=== PATIENT | male | born 1950 | race Caucasian/White ===

== ENCOUNTER 2020-02-08 15:00 | Outpatient (RCR) | payer MEDICARE, SELFPAY ==
[2020-01-25 14:01] VITALS: BP 145/79; PULSE 88; RESP 20; TEMP 36.8; BMI 45.4
--- NOTE | 2020-01-25 14:57 | PCM.WC.HP ---
(1) Diabetes mellitus type 2 in obese Status: Chronic Code(s): E11.69 - Type 2 diabetes mellitus with other specified complication; E66.9 - Obesity, unspecified (2) Morbid obesity with BMI of 45.0-49.9, adult Status: Chronic Code(s): E66.01 - Morbid (severe) obesity due to excess calories; Z68.42 - Body mass index [BMI] 45.0-49.9, adult (3) COPD (chronic obstructive pulmonary disease) Status: Chronic Code(s): J44.9 - Chronic obstructive pulmonary disease, unspecified (4) Coronary artery disease Status: Chronic Qualifiers: Coronary Disease-Associated Artery/Lesion type: [place] artery [place] vs. transplanted heart: [place] heart Associated angina: without angina Qualified Code(s): I25.10 - Atherosclerotic heart disease of [place] coronary artery without angina pectoris Code(s): I25.10 - Atherosclerotic heart disease of [place] coronary artery without angina pectoris (5) Hx of CABG Status: Chronic Code(s): Z95.1 - Presence of aortocoronary bypass graft Comment: Approximately 2009-06 vessels (6) Venous insufficiency Status: Chronic Code(s): I87.2 - Venous insufficiency (chronic) (peripheral) (7) Stasis dermatitis of both legs Status: Chronic Code(s): I87.2 - Venous insufficiency (chronic) (peripheral) (8) Parkinsons disease Status: Chronic Code(s): G20 - Parkinson's disease (9) Hypertension Status: Chronic Code(s): I10 - Essential (primary) hypertension (10) BPH (benign prostatic hyperplasia) Status: Chronic Code(s): N40.0 - Benign prostatic hyperplasia without lower urinary tract symptoms (11) Venous stasis ulcer of calf limited to breakdown of skin Status: Acute Code(s): I83.002 - Varicose veins of unspecified lower extremity with ulcer of calf; L97.201 - Non-pressure chronic ulcer of unspecified calf limited to breakdown of skin History of Present Illness Date of Service: 01/25/20 Chief Complaint: wound on the LLE distally History of Wound: He has had a raised area on the Left lateral and anterior pretibial area on the distal left leg since having his CABG 10 years ago. Recently it has been weeping and it is scaley. He recently had an exacerbation of COPD and has been on Zithromax and steroids. Has had increased swelling of the legs. Denies any hx of DVT or claudication. Had saphenous vein graft in the right lower extremity. His is unable to get compression stockings on. He has no lymphedema pumps. Past Medical History Past Medical History: Chronic Problems Diabetes mellitus type 2 in obese (Chronic) Morbid obesity with BMI of 45.0-49.9, adult (Chronic) COPD (chronic obstructive pulmonary disease) (Chronic) Coronary artery disease (Chronic) Hx of CABG (Chronic) Approximately 2010-5 vessels Venous insufficiency (Chronic) Stasis dermatitis of both legs (Chronic) Parkinsons disease (Chronic) Hypertension (Chronic) BPH (benign prostatic hyperplasia) (Chronic) Surgical History: appendectomy, coronary bypass surgery - X5 vessels, rotator cuff repair, - - Hydrocele Allergies/Adverse Reactions: Allergies adhesive tape Adverse Reaction (Verified 01/25/20 14:17) Rash BLISTERS Home Medications: Ambulatory Orders Medication Instructions Recorded Atorvastatin Calcium 80 mg PO 01/25/20 Carbidopa/Levodopa 1 tab PO 4X/DAY 01/25/20 [Carbidopa-Levodopa 25-100 Tab] Carvedilol [Coreg] 25 mg PO BID 01/25/20 Empagliflozin [Jardiance] 25 mg PO 01/25/20 Fluticasone/Umeclidin/Vilanter 1 ea IH 01/25/20 [Trelegy Ellipta 100-62.5-25] Insulin Glargine,Hum.rec.anlog 38 unit SQ 01/25/20 [Lantus Solostar] Metformin HCl 1,000 mg PO DAILY 01/25/20 Pramipexole Di-HCl [Pramipexole mg PO 4X/DAY 01/25/20 Dihydrochloride] Ramipril 10 mg PO BID 01/25/20 Tamsulosin HCl 0.4 mg PO 01/25/20 - Family History Maternal No pertinent history, - - denies any family hx of DVT or hypercoagulable disorders Paternal Heart Disease Lives: Spouse/ Significant Other - 's name is Katja and she is here with him today Smoking Status: Former smoker - quit in 1987 Tobacco Use: Non-smoker Drugs: None Review of Systems Constitutional: Reports: Weight Change - he has been gaining some weight. Denies: Anorexia, Chills, Fever Eyes: Denies: Pain, Vision Change HEENT: Denies: Difficulty Hearing Cardiovascular: Reports: Edema - lots of edema......goes down somewhat when he elevates his legs but, recently he had a exacerbation of COPD and has not been able to lie down in bed due to SOB. He has been sleeping in a recliner and not alsways with his legs elevated.. Denies: Chest Pain, Light Headedness, Palpitations Respiratory: Reports: Shortness of Breath, Shortness of breath upon exertion, Wheezing, -. Denies: Cough, Shortness of breath at rest Musculoskeletal: Reports: - - denies claudication. Denies: Foot Pain Skin: Reports: Dryness, Wounds - Left lower extremity. Denies: Jaundice Hematologic/ Lymphatic: Denies: Hx of blood clot - Physical Exam Vital Signs Temp Pulse Resp BP 98.2 F 88 20 H 145/79 H 01/25/20 14:01 01/25/20 14:01 01/25/20 14:01 01/25/20 14:01 General: Alert, Oriented x3, Cooperative, No apparent distress, Well developed, Well nourished, - - obese HEENT: Atraumatic Lungs: Diminished, Wheezes Cardiovascular: Regular rate, Regular Rhythm Abdomen: Non Tender, Obese, - - no pitting edema in the flanks Extremities: No cyanosis, Capillary Refill Less than 3 Seconds, Edema - 4+ to just above the knee BL. No significant edema in the upper thighs and no pitting in the flanks. The skin is very dry. He has a raised area over the left lateral calf and the pretibial area. It is well demarcated. There is a lot of adherent dry skin and a few punctate scabs., - - PT and DP are palpable and easily found even with the edema. Skin: - - See description of the wound under Extremities. There is a very small amount of serous drainage. He has stasis dermatitis and the skin over the LE's is very dry and flakey both LE's. Wound Measurements and Assessment WC - Nurse 1 - General Ulcer Measurement Start: 01/25/20 14:00 Freq: Status: Active Protocol: Activity Type Activity Date Activity User E-Sign Co-Sign Detail Recorded Client Recorded Date Recorded By Document 01/25/20 14:01 [facility] [id number] 01/25/20 14:14 [facility] 01/25/20 14:01 Wound Center Nurse 1 [Ulcer Assessment] #1- L LAT LE -Combined with other wound No -Current Size (cm) - Length 0.1 -Current Size (cm) - Width 0.1 -Current Size (cm) - Depth 0.1 -Total Square Cm 0.01 -Date of Last Picture (Recall this 01/25/20 field) -Photo Taken Yes -Epithelialization None Present -Tunneling No -Undermining/Tunneling No -Circular Undermining No -Exudate Amt Small -Exudate Type Serous -Wound Margin Distinct, Outline Attached -Granulation Amt Small (1-33%) -Granulation Quality Red -Slough/Fibrin Yes -Necrosis Amt Large (67-100%) -Necrotic Tissue Type Adherent Slough -Texture (Cayla-wound Skin Appearance) Assessed, Scarring -Moisture (Cayla-wound Skin Appearance Assessed,Dry/ ) Scaly -Color (Cayla-wound Skin Appearance) Assessed -Temperature (Cayla-wound Skin No Abnormality Appearance) (Pt Warm) -Tenderness on Palpation (Cayla-wound No Skin Appearance) -Ulcer Cleansing SOAPY WATER -Foul Odor after Cleansing No -Anesthetic Used 4% Lidocaine Solution [Edema Assessment] -Lower Limb Edema Present Yes -Right Calf (cm) 52.5 -Right Ankle (cm) 31 -Left Calf (cm) 49.2 -Left Ankle (cm) 28.3 Debridement Note Wound debrided: Left lateral calf and pretibial area Laterality: Left Type of Debridement: - - superficial debridement of dry skin and small scabs Anesthesia Used: 4% Lidocaine Solution Percentage of wound debrided: 80 Instrument Used: Forceps Severity: Limited To Skin Breakdown Amount of bleeding with debridement: Mild Bleeding Controlled with: Pressure Patient tolerated procedure well Operative Diagnosis: venous stasis ulcer over the L lateral calf and the pretibial area mid calf Assessment/Plan Active Problems Diabetes mellitus type 2 in obese (Chronic) Morbid obesity with BMI of 45.0-49.9, adult (Chronic) COPD (chronic obstructive pulmonary disease) (Chronic) Coronary artery disease (Chronic) Hx of CABG (Chronic) Approximately 2009- vessels Venous insufficiency (Chronic) Stasis dermatitis of both legs (Chronic) Parkinsons disease (Chronic) Hypertension (Chronic) BPH (benign prostatic hyperplasia) (Chronic) Assessment: Impressions. 1. stasis dermatitis of both LE's. 2. Chronic Venous stasis ulcer of the LLE with hypergranulation healing in past with chronic raised well demarcated lesion. 3. morbid obesity. 4. DM II. 5. CAD with hx of CABG X 5 in 2010. 6. HTN. 7. Parkinson's disease. 8. Tobacco dependence in remission. 9. Hyperlipidemia. 10. BPH Plan: 1. Unna boots to both LE's today for compression to control the edema. 2. get records of recent labs - including HGBA1C from his PCP. 3. Arterial studies. 4. RTC in 1 week. 5. elevate...he has a bed which is electric and he can elevate the HOB and also The legs. 6. I recommended he follow up with a psychologist industrial organizational for nail care. 7. Lose weight. Low salt. 8. May benefit from Lymphedema pumps in the future it the compression does not control the edema. After the swelling has improved will use Surepres wraps if the arterial studies show no significant arterial disease. 9. would like to get recent labs from his PCP and a recent ECHO if he has had 1. 10. If he has significant pulmonary HTN he may benefit from a diuretic once a day. Office Visits / Consults: [phone] OV L3 New
[2020-02-01 14:12] VITALS: BP 125/71; PULSE 89; RESP 18; TEMP 36.3; BMI 45.4
--- NOTE | 2020-02-01 14:35 | PCM.WC.PN ---
(1) Diabetes mellitus type 2 in obese Status: Chronic Code(s): E11.69 - Type 2 diabetes mellitus with other specified complication; E66.9 - Obesity, unspecified (2) Morbid obesity with BMI of 45.0-49.9, adult Status: Chronic Code(s): E66.01 - Morbid (severe) obesity due to excess calories; Z68.42 - Body mass index [BMI] 45.0-49.9, adult (3) COPD (chronic obstructive pulmonary disease) Status: Chronic Code(s): J44.9 - Chronic obstructive pulmonary disease, unspecified (4) Coronary artery disease Status: Chronic Qualifiers: Coronary Disease-Associated Artery/Lesion type: [place] artery [place] vs. transplanted heart: [place] heart Associated angina: without angina Qualified Code(s): I25.10 - Atherosclerotic heart disease of [place] coronary artery without angina pectoris Code(s): I25.10 - Atherosclerotic heart disease of [place] coronary artery without angina pectoris (5) Hx of CABG Status: Chronic Code(s): Z95.1 - Presence of aortocoronary bypass graft Comment: Approximately 2009-06 vessels (6) Venous insufficiency Status: Chronic Code(s): I87.2 - Venous insufficiency (chronic) (peripheral) (7) Stasis dermatitis of both legs Status: Chronic Code(s): I87.2 - Venous insufficiency (chronic) (peripheral) (8) Parkinsons disease Status: Chronic Code(s): G20 - Parkinson's disease (9) Hypertension Status: Chronic Code(s): I10 - Essential (primary) hypertension (10) BPH (benign prostatic hyperplasia) Status: Chronic Code(s): N40.0 - Benign prostatic hyperplasia without lower urinary tract symptoms (11) Venous stasis ulcer of calf limited to breakdown of skin Status: Acute Code(s): I83.002 - Varicose veins of unspecified lower extremity with ulcer of calf; L97.201 - Non-pressure chronic ulcer of unspecified calf limited to breakdown of skin Type of Wound Date of Service: 02/01/20 Chief Complaint: wound on the LLE distally History of Wound: He has had a raised area on the Left lateral and anterior pretibial area on the distal left leg since having his CABG 10 years ago. Recently it has been weeping and it is scaley. He recently had an exacerbation of COPD and has been on Zithromax and steroids. Has had increased swelling of the legs. Denies any hx of DVT or claudication. Had saphenous vein graft in the right lower extremity. His is unable to get compression stockings on. He has no lymphedema pumps. Progress of Wound: The swelling in the legs is much better and there are no openings in the skin over the LLE and the squamation is improved. I was able to get all the skin off using a gauze and rubbing gently. He denies fevers, chills, sweats. The unna boots were not uncomforatble for him. The skin is better moisturized. He states that his urine output really increased 1 day after the unna boots were applied. - Physical Exam Vital Signs Temp Pulse Resp BP 97.4 F L 89 18 125/71 H 02/01/20 14:12 02/01/20 14:12 02/01/20 14:12 02/01/20 14:12 General: Alert, Cooperative, No apparent distress Cardiovascular: Regular rate, Regular Rhythm Extremities: Edema - he still has edema of the legs but it is much better. When his legs are dependent the feet are bluish and his wondered why. I explained this is due to venous congestion related to venous insufficiency. When I elevated the leg the foot got pale and she was able to observe this Skin: - - the skin of the LE's is not as dry as it was last week. All the old dry skin was removed from the LLE with a coarse gauze and gently rubbing. Wound Measurements and Assessment WC - Nurse 1 - General Ulcer Measurement Start: 01/25/20 14:00 Freq: Status: Active Protocol: Activity Type Activity Date Activity User E-Sign Co-Sign Detail Recorded Client Recorded Date Recorded By Document 02/01/20 14:12 [facility] [id number] 02/01/20 14:13 [facility] 02/01/20 14:12 Wound Center Nurse 1 [Ulcer Assessment] #1- L LAT LE -Combined with other wound No -Current Size (cm) - Length 0.1 -Current Size (cm) - Width 0.1 -Current Size (cm) - Depth 0.1 -Total Square Cm 0.01 -Photo Taken No -Epithelialization Medium 34-66% -Tunneling No -Undermining/Tunneling No -Circular Undermining No -Exudate Amt None Present -Wound Margin Flat & Intact -Granulation Amt Large (67-100%) -Granulation Quality [place] -Slough/Fibrin Yes -Necrosis Amt Small (1-33%) -Necrotic Tissue Type Adherent Slough -Texture (Cayla-wound Skin Appearance) Assessed, Scarring -Moisture (Cayla-wound Skin Appearance Assessed,Dry/ ) Scaly -Color (Cayla-wound Skin Appearance) Assessed, Hemosiderin Staining -Temperature (Cayla-wound Skin No Abnormality Appearance) (Pt Warm) -Tenderness on Palpation (Cayla-wound No Skin Appearance) -Ulcer Cleansing SOAPY WATER -Foul Odor after Cleansing No [Edema Assessment] -Lower Limb Edema Present Yes -Right Calf (cm) 51.6 -Right Ankle (cm) 28.6 -Left Calf (cm) 46.9 -Left Ankle (cm) 28.2 Per my exam there is no open areas and no drainage on the left LE. The old skin was debrided with a gauze. The RLE has keloid from where the vein graft was taken for CABG. No openings of the skin of the RLE. There is still dry skin on the LE's but it is much better than last week. He has a piece of toenail loosely hanging from the L great toe and this was removed without difficulty. The nail appears damaged and he may have onychomycosis. At the base of the nail bed there is erythema and it is a little fluctuant but the is no DC, serous or purulent. It is not painful to the touch. Neurological: Cranial nerves II-XII grossly intact, Neuro grossly intact Debridement Note Post-Debridement Measurements/Treatment WC - Nurse 2 - General Ulcer CM Notes Start: 01/25/20 14:00 Freq: Status: Active Protocol: Activity Type Activity Date Activity User E-Sign Co-Sign Detail Recorded Client Recorded Date Recorded By Document 01/25/20 16:56 PL [id number] 01/25/20 16:57 PL 01/25/20 16:56 Pain Scale: 0-10 Numeric Is Patient Pain Free? Yes ADAM - Nurse 3 - General Ulcer D/C NN Start: 01/25/20 14:00 Freq: Status: Active Protocol: Activity Type Activity Date Activity User E-Sign Co-Sign Detail Recorded Client Recorded Date Recorded By Document 01/25/20 15:04 DL [id number] 01/25/20 15:05 DL 01/25/20 15:04 Wound Care Nurse 3 #1- L LAT LE -Ulcer Cleansing Rinsed/ Irrigated with Saline -Foul Odor after Cleansing No Left -Multi-Layered Wrap Application Unna Boot - Bilateral ($) -Unna Boots (Bilat) ($) 2 Vital Signs Temperature Source Oral Pain Scale: 0-10 Numeric Is Patient Pain Free? Yes WC - Visit Discharge Discharge Condition Stable Ambulatory Status Ambulatory Transportation Private Auto Laterality: Left No debridement was completed today Assessment/Plan Scheduled to have arterial and venous studies next week prior to his appt with me on Friday. Active Problems Diabetes mellitus type 2 in obese (Chronic) Morbid obesity with BMI of 45.0-49.9, adult (Chronic) COPD (chronic obstructive pulmonary disease) (Chronic) Coronary artery disease (Chronic) Hx of CABG (Chronic) Approximately 2009- vessels Venous insufficiency (Chronic) Stasis dermatitis of both legs (Chronic) Parkinsons disease (Chronic) Hypertension (Chronic) BPH (benign prostatic hyperplasia) (Chronic) Venous stasis ulcer of calf limited to breakdown of skin (Acute) Assessment: Impressions. 1. stasis dermatitis of both LE's. 2. Chronic Venous stasis ulcer of the LLE with hypergranulation/hypertrophic healing in past with chronic raised well demarcated lesion. - healed. 3. morbid obesity. 4. DM II. 5. CAD with hx of CABG X 5 in 2009 - he hasa a keloid on the RLE from the site of the GSV graft. 6. HTN. 7. Parkinson's disease. 8. Tobacco dependence in remission. 9. Hyperlipidemia. 10. BPH. 11. paronychitis of the Left great toe Plan: 1. Unna boots to both LE's today for compression to control the edema. 2. get records of recent labs - including HGBA1C from his PCP. 3. Arterial studies and vein studies. 4. RTC in 1 week. 5. elevate...he has a bed which is electric and he can elevate the HOB and also The legs. 6. I recommended he follow up with a family member caretaker for nail care. 7. Lose weight. Low salt. 8. May benefit from Lymphedema pumps in the future it the compression does not control the edema. The openings in the skin are healed. Will likely be able to switch to Surepres next week. 9. would like to get recent labs from his PCP and a recent ECHO if he has had 1. 10. If he has significant pulmonary HTN he may benefit from a diuretic once a day. 11. After the unna boots are removed will have him moisturize his LE's once a day at Bedtime with Eucerin intensive repair. We did not receive any records from his PCP so lakshmi send another request for any ECHO's, recent CBC and BMP, any sleep studies and PFT's Office Visits / Consults: [id number] OV L2 Est
--- NOTE | 2020-02-08 13:06 | ART_ITS ---
Reason For Study: non healing wound Procedure A bilateral lower extremity continuous wave Doppler with analog waveform analysis,segmental pressures,and ankle brachial indexes without exercise. Left Segmental Pressures Left brachial= 146mmHg. Left digit = 108 mmHg. DRY KILN OPERATOR HELPER and DPA are both noncompressible. The left dorsalis pedis waveforms are triphasic. The left posterior tibial artery waveforms are triphasic. Right Segmental Pressures Right brachial= 150mmHg. Right posterior tibial artery = 222mmHg. Right digit = 118 mmHg. The right dorsalis pedis waveforms are triphasic. The right posterior tibial artery waveforms are triphasic. DPA is noncompressible. Indices The right ankle brachial index by the posterior tibial artery is 1.48. The right digital-brachial index is .79. DPA is noncompressible. The left digital-brachial index is .72. DRY KILN OPERATOR HELPER and DPA are both noncompressible. Interpretation Summary Triphasic Doppler waveforms are noted at ankle level bilaterally. Pulse-volume recordings are diminished at digital level bilaterally, but satisfactory at low-thigh, calf, and ankle levels bilaterally. Resting ankle-brachial indices could not be calculated on either side due to the non- compressibility of the vasculature at ankle level bilaterally. Digital-brachial indices are normal bilaterally. There is evidence of arterial calcification at ankle level bilaterally. There is no evidence of significant arterial occlusive disease in the lower extremities bilaterally. Ordering Physician: Heidi Cai Performed By: ROYAL ASCENCIO RVT
[2020-02-08 14:02] VITALS: BP 115/55; PULSE 101; RESP 18; TEMP 36.3; BMI 45.4
--- NOTE | 2020-02-08 14:43 | PCM.WC.PN ---
(1) Diabetes mellitus type 2 in obese Status: Chronic Code(s): E11.69 - Type 2 diabetes mellitus with other specified complication; E66.9 - Obesity, unspecified (2) Morbid obesity with BMI of 45.0-49.9, adult Status: Chronic Code(s): E66.01 - Morbid (severe) obesity due to excess calories; Z68.42 - Body mass index [BMI] 45.0-49.9, adult (3) COPD (chronic obstructive pulmonary disease) Status: Chronic Code(s): J44.9 - Chronic obstructive pulmonary disease, unspecified (4) Coronary artery disease Status: Chronic Qualifiers: Coronary Disease-Associated Artery/Lesion type: [place] artery [place] vs. transplanted heart: [place] heart Associated angina: without angina Qualified Code(s): I25.10 - Atherosclerotic heart disease of [place] coronary artery without angina pectoris Code(s): I25.10 - Atherosclerotic heart disease of [place] coronary artery without angina pectoris (5) Hx of CABG Status: Chronic Code(s): Z95.1 - Presence of aortocoronary bypass graft Comment: Approximately 2009-06 vessels (6) Venous insufficiency Status: Chronic Code(s): I87.2 - Venous insufficiency (chronic) (peripheral) (7) Stasis dermatitis of both legs Status: Chronic Code(s): I87.2 - Venous insufficiency (chronic) (peripheral) (8) Parkinsons disease Status: Chronic Code(s): G20 - Parkinson's disease (9) Hypertension Status: Chronic Code(s): I10 - Essential (primary) hypertension (10) BPH (benign prostatic hyperplasia) Status: Chronic Code(s): N40.0 - Benign prostatic hyperplasia without lower urinary tract symptoms (11) Venous stasis ulcer of calf limited to breakdown of skin Status: Acute Code(s): I83.002 - Varicose veins of unspecified lower extremity with ulcer of calf; L97.201 - Non-pressure chronic ulcer of unspecified calf limited to breakdown of skin Type of Wound Date of Service: 02/08/20 Chief Complaint: wound on the LLE distally History of Wound: He has had a raised area on the Left lateral and anterior pretibial area on the distal left leg since having his CABG 10 years ago. Recently it has been weeping and it is scaley. He recently had an exacerbation of COPD and has been on Zithromax and steroids. Has had increased swelling of the legs. Denies any hx of DVT or claudication. Had saphenous vein graft in the right lower extremity. His is unable to get compression stockings on. He has no lymphedema pumps. Progress of Wound: Denies fever, chills, pain in the lower extremities. The edema is much improved and the openings in the skin of the Left LE are healed. the skin is better moisturized. The arterial studies were done today and he has triphasic wave forms bilaterally in the posterior tibial and dorsalis pedis arteries. Ankle-brachial index on the right was 1.48 and the ankle-brachial index on the left was not calculated. Digital brachial index on the right was 0.79 and digital brachial index on the left was 0.72 and this is normal. - Physical Exam Vital Signs Temp Pulse Resp BP 97.4 F L 101 H 18 115/55 L 02/08/20 14:02 02/08/20 14:02 02/08/20 14:02 02/08/20 14:02 General: Alert, Oriented x3, Cooperative, No apparent distress Cardiovascular: Regular rate, Regular Rhythm Extremities: Edema - much improved over the first day I saw him Skin: No rashes, No breakdown, - - wounds on the LLE are healed Wound Measurements and Assessment WC - Nurse 1 - General Ulcer Measurement Start: 01/25/20 14:00 Freq: Status: Active Protocol: Activity Type Activity Date Activity User E-Sign Co-Sign Detail Recorded Client Recorded Date Recorded By Document 02/08/20 14:02 [id number] 02/08/20 14:10 DIPESH 02/08/20 14:02 Wound Center Nurse 1 [Ulcer Assessment] #1- L LAT LE -Combined with other wound No -Current Size (cm) - Length 0 -Current Size (cm) - Width 0 -Current Size (cm) - Depth 0 -Total Square Cm 0 -Date of Last Picture (Recall this 02/08/20 field) -Photo Taken Yes -Epithelialization Large 67-100% -Tunneling No -Undermining/Tunneling No -Circular Undermining No -Exudate Amt None Present -Wound Margin Indistinct, Non -Visible -Granulation Amt None Present (0 %) -Slough/Fibrin No -Structure Exposed N/A -Texture (Cayla-wound Skin Appearance) Assessed, Localized Edema -Moisture (Cayla-wound Skin Appearance No Abnormality, ) Dry/Scaly -Temperature (Cayla-wound Skin No Abnormality Appearance) (Pt Warm) -Tenderness on Palpation (Cayla-wound No Skin Appearance) [Edema Assessment] -Lower Limb Edema Present Yes -Right Calf (cm) 52.3 -Right Ankle (cm) 29.7 -Left Calf (cm) 48.2 -Left Ankle (cm) 27.6 No open wounds and no debridement necessary Neurological: Cranial nerves II-XII grossly intact, Neuro grossly intact Debridement Note Post-Debridement Measurements/Treatment WC - Nurse 2 - General Ulcer CM Notes Start: 01/25/20 14:00 Freq: Status: Active Protocol: Activity Type Activity Date Activity User E-Sign Co-Sign Detail Recorded Client Recorded Date Recorded By Document 01/25/20 16:56 PL [id number] 01/25/20 16:57 PL 01/25/20 16:56 Pain Scale: 0-10 Numeric Is Patient Pain Free? Yes WC - Nurse 3 - General Ulcer D/C NN Start: 01/25/20 14:00 Freq: Status: Active Protocol: Activity Type Activity Date Activity User E-Sign Co-Sign Detail Recorded Client Recorded Date Recorded By Document 01/25/20 15:04 DL [id number] 01/25/20 15:05 DL Document 02/01/20 14:48 [facility] [id number] 02/01/20 14:49 [facility] 01/25/20 02/01/20 15:04 14:48 Wound Care Nurse 3 #1- L LAT LE -Ulcer Cleansing Rinsed/ Rinsed/ Irrigated with Irrigated with Saline Saline -Foul Odor after Cleansing No No -Primary Dressing Applied Other -Other Dressing UNNA BOOT BILATERAL -Multi-Layered Wrap Application Unna Boot - Bilateral ($) -Unna Boots (Bilat) ($) 1 Left -Multi-Layered Wrap Application Unna Boot - Bilateral ($) -Unna Boots (Bilat) ($) 2 Treatment Response Procedure Tolerated Well Vital Signs Temperature Source Oral Pain Scale: 0-10 Numeric Is Patient Pain Free? Yes Yes WC - Visit Discharge Discharge Condition Stable Stable Ambulatory Status Ambulatory Ambulatory Transportation Private Auto Private Auto Accompanied by No debridement was completed today Assessment/Plan Active Problems Diabetes mellitus type 2 in obese (Chronic) Morbid obesity with BMI of 45.0-49.9, adult (Chronic) COPD (chronic obstructive pulmonary disease) (Chronic) Coronary artery disease (Chronic) Hx of CABG (Chronic) Approximately 2010-5 vessels Venous insufficiency (Chronic) Stasis dermatitis of both legs (Chronic) Parkinsons disease (Chronic) Hypertension (Chronic) BPH (benign prostatic hyperplasia) (Chronic) Venous stasis ulcer of calf limited to breakdown of skin (Acute) Assessment: Impressions. 1. stasis dermatitis of both LE's. 2. Chronic Venous stasis ulcer of the LLE with hypergranulation/hypertrophic healing in past with chronic raised well demarcated lesion. - healed. 3. morbid obesity. 4. DM II. 5. CAD with hx of CABG X 5 in 2010 - he hasa a keloid on the RLE from the site of the GSV graft. 6. HTN. 7. Parkinson's disease. 8. Tobacco dependence in remission. 9. Hyperlipidemia. 10. BPH. 11. paronychitis of the Left great toe - resolved with antibiotics Plan: 1. Surepres wraps to both LE's.... was instructed in how to apply correctly each AM. Can remove at HS. She will moisturize the legs BID with Eucerin intensive repair. 2. Arterial studies completed. Venous studies ordered. 3. RTC in 1 week. 4. elevate...he has a bed which is electric and he can elevate the HOB and also The legs. 5. I recommended he follow up with a junior account manager for nail care. 6. Lose weight. Low salt. 7. May benefit from Lymphedema pumps in the future it the compression does not control the edema. The openings in the skin are healed. 9. would like to get recent labs from his PCP and a recent ECHO if he has had 1. 10. If he has significant pulmonary HTN he may benefit from a diuretic once a day. We did not receive any records from his PCP so [facility] send another request for any ECHO's, recent CBC and BMP, any sleep studies and PFT's Office Visits / Consults: [id number] OV L2 Est
== END 2020-02-10 23:59 ==
LOC: WC 15:00
PROVIDERS: PCP General Practice; Referring Provider General Practice; Visit Provider Internal Medicine
DX: I83.022 Varicose veins of left lower extremity with ulcer of calf (principal); L97.221 Non-pressure chronic ulcer of left calf limited to breakdown of skin; Z68.42 Body mass index [BMI] 45.0-49.9, adult; E66.01 Morbid (severe) obesity due to excess calories; J44.9 Chronic obstructive pulmonary disease, unspecified; Z95.1 Presence of aortocoronary bypass graft; G20 Parkinson's disease; I10 Essential (primary) hypertension; N40.0 Benign prostatic hyperplasia without lower urinary tract symptoms; Z87.891 Personal history of nicotine dependence; E78.5 Hyperlipidemia, unspecified
CPT/HCPCS: 29580; 93923; 99212; 99213; G0463

== ENCOUNTER 2020-03-09 11:30 | Outpatient (RCR) | payer MEDICARE, SELFPAY ==
[2020-02-11 00:40] VITALS: BP 115/55; PULSE 101; RESP 18; TEMP 36.3
[2020-02-15 13:55] VITALS: BP 155/68; PULSE 91; RESP 20; TEMP 36.3; BMI 45.4
--- NOTE | 2020-02-15 14:15 | PN.PCM_ITS ---
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 due to the Surepress wrap started last week for compression Type of Wound Date of Service: 02/22/20 Chief Complaint: wound on the LLE distally History of Wound: He has had a raised area on the Left lateral and anterior pretibial area on the distal left leg since having his CABG 10 years ago. Recently it has been weeping and it is scaley. He recently had an exacerbation of COPD and has been on Zithromax and steroids. Has had increased swelling of the legs. Denies any hx of DVT or claudication. Had saphenous vein graft in the right lower extremity. His is unable to get compression stockings on. He has no lymphedema pumps. Progress of Wound: He developed large fluid filled bullae of the L>R LE 24 hours after Surepress wraps were initiated. He denies hx of Latex allergy. He was seen in the ED and placed on Clindamycin. He has had heartburn with the Clindamycin and he is taking Nexium PRN. He denies fevers/chills/sweats. No significant pain. - Physical Exam Vital Signs Temp Pulse Resp BP 97.3 F L 91 20 H 155/68 H 02/15/20 13:55 02/15/20 13:55 02/15/20 13:55 02/15/20 13:55 General: Alert, Oriented x3, Cooperative, No apparent distress Neck: Trachea Midline - Not tachypneic, no conversational dyspnea Lungs: Clear to auscultation, - Wound Measurements and Assessment WC - Nurse 1 - General Ulcer Measurement Start: 02/15/20 13:55 Freq: Status: Active Protocol: Activity Type Activity Date Activity User E-Sign Co-Sign Detail Recorded Client Recorded Date Recorded By Document 02/15/20 13:55 DL [id number] 02/15/20 14:00 DL 02/15/20 13:55 Wound Center Nurse 1 [Ulcer Assessment] #1- L LAT LE -Current Size (cm) - Length 5.8 -Current Size (cm) - Width 6.3 -Current Size (cm) - Depth 0.1 -Total Square Cm 36.54 -Photo Taken No -Exudate Amt Medium -Exudate Type Serosanguineous -Wound Margin Distinct, Outline Attached -Granulation Amt Large (67-100%) -Granulation Quality Red -Necrosis Amt Small (1-33%) -Necrotic Tissue Type Adherent Slough -Structure Exposed N/A -Texture (Cayla-wound Skin Appearance) Localized Edema ,Scarring -Moisture (Cayla-wound Skin Appearance Weeping ) -Color (Cayla-wound Skin Appearance) Hemosiderin Staining -Temperature (Cayla-wound Skin No Abnormality Appearance) (Pt Warm) -Tenderness on Palpation (Cayla-wound No Skin Appearance) -Ulcer Cleansing Wound Cleanser -Foul Odor after Cleansing No -Anesthetic Used 4% Lidocaine Solution [Edema Assessment] -Left Calf (cm) 47.8 -Left Ankle (cm) 29 There are no open areas on the RLE. On the LLE there is a large (see dimensions above) denuded are secondary to blister that has been deroofed. There is no surrounding erythema, no purulent DC, no increased warmth of touch and no odor. This denuded area is actually above where the previous ulceration was....above the hypertrophic scar area. The wound is 2/3 granulating and 1/3 slough but nothing that could be debrided. His has been using a compressive wrap OVER gauze so that skin has no contact with anything elastic. Musculoskeletal: No Tenderness to Palpation of Joints or Extremities, No Muscle Wasting Neurological: Cranial nerves II-XII grossly intact, Neuro grossly intact Psych/Mental Status: Normal Affect, Appropriate Debridement Note Laterality: Left No debridement was completed today Assessment/Plan Active Problems Bullous dermatitis (Acute) suspect this is due to the Surepress wrap started last week for compression Assessment: Impressions. 1. stasis dermatitis of both LE's. 2. Chronic Venous stasis ulcer of the LLE with hypergranulation/hypertrophic healing in past with chronic raised well demarcated lesion. - healed. 3. morbid obesity. 4. DM II. 5. CAD with hx of CABG X 5 in 2010 - he hasa a keloid on the RLE from the site of the GSV graft. 6. HTN. 7. Parkinson's disease. 8. Tobacco dependence in remission. 9. Hyperlipidemia. 10. BPH. 11. paronychitis of the Left great toe - resolved with antibiotics. 12. contact dermatitis - suspect due to Surepres wrap which contains Latex. Possible Latex allergy? Plan: 1. reapply and unna boot to the LLE. 2. finish all the Clindamycin given to him b y the ER physician. 3. I recommended he follow up with a pet care technician to be tested for a latex allergy. I explained Latex is contained in many products including dressings, catheters, gloves, IV tubing, etc. If he does have a latex allergy and continues to be exposed he will having worsening reactions and could even have anaphylaxis. 4. RTC in 1 week. 5. He has venous studies on the LE's scheduled for next week prior to his appt with me. 6. continue the compression he is currently using on the RLE. COntinue elevation, salt restriction and wt loss efforts. Office Visits / Consults: [id number] OV L3 Est
--- NOTE | 2020-02-22 12:37 | VDLE_ITS ---
Reason For Study: non healing wound RIGHT LEFT CFV is compressible, spontaneous, phasic, CFV is compressible, spontaneous, phasic, competent and demonstrates normal competent, and demonstrates normal augmentation. augmentation. FV is compressible, spontaneous, phasic, FV is compressible, spontaneous, phasic, competent and demonstrates normal competent and demonstrates normal augmentation. augmentation. POP V is compressible, spontaneous, phasic, POP V is compressible, spontaneous, phasic, competent and demonstrates normal competent and demonstrates normal augmentation. augmentation. T/P Trunk is compressible. T/P Trunk is compressible. PTV is compressible. PTV is compressible. RT PerV is compressible. LT PerV is compressible. SFJ is competent and measures .77 cm. SFJ is competent and measures .6 cm. SSV proximal calf is competent and GSV proximal thigh measures .38 x .42 cm. measures .57 x .65 cm. GSV at knee measures .41 x .44 cm. Chronic vein wall thickening noted in the GSV above knee is competent. SSV. GSV below knee is INCOMPETENT for greater GSV is harvested. than 0.5 seconds. ASV proximal calf is INCOMPETENT for greater SSV proximal calf is INCOMPETENT for greater than 0.5 seconds and measures .31 x .35 cm. than 0.5 seconds and measures .31 x .32 cm. Procedure ASV proximal calf is INCOMPETENT for greater This is a venous duplex using B-mode, color than 0.5 seconds and measures .45 x .45 cm. flow and spectral Doppler. Exam performed in department. The exam was of fair technical quality due to pt body habitus. Interpretation Summary Deep veins of the lower extremities are bilaterally patent and compressible segmentally. There is no evidence of deep vein thrombosis on either side. Valvular competence appears intact within the proximal deep venous systems bilaterally. Sapheno-femoral junctions are bilaterally competent . The right great saphenous vein has been previously harvested. The left great saphenous vein appears patent and compressible segmentally. The left great saphenous vein appears competent above the knee. The left great saphenous vein appears incompetent below the knee. Chronic vein wall thickening is noted in the right small saphenous vein, which is patent and competent. The left small saphenous vein is patent and incompetent. The accessory saphenous vein in the right proximal calf is incompetent. The accessory saphenous vein in the left proximal calf is incompetent. Ordering Physician: Heidi Cai Performed By: Fish Haywood RVT
[2020-02-22 13:48] VITALS: BP 131/76; PULSE 98; TEMP 36.4; BMI 45.4
--- NOTE | 2020-02-22 15:09 | PN.PCM_ITS ---
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 due to the Surepress wrap started last week for compression (2) Venous stasis ulcer of calf limited to breakdown of skin Status: Acute Code(s): I83.002 - Varicose veins of unspecified lower extremity with ulcer of calf; L97.201 - Non-pressure chronic ulcer of unspecified calf limited to breakdown of skin (3) Stasis dermatitis of both legs Status: Chronic Code(s): I87.2 - Venous insufficiency (chronic) (peripheral) (4) Venous insufficiency Status: Chronic Code(s): I87.2 - Venous insufficiency (chronic) (peripheral) Type of Wound Date of Service: 02/22/20 Chief Complaint: wound on the LLE distally History of Wound: He has had a raised area on the Left lateral and anterior pretibial area on the distal left leg since having his CABG 10 years ago. Recently it has been weeping and it is scaley. He recently had an exacerbation of COPD and has been on Zithromax and steroids. Has had increased swelling of the legs. Denies any hx of DVT or claudication. Had saphenous vein graft in the right lower extremity. His is unable to get compression stockings on. He has no lymphedema pumps. 02/22/20. He had an unna boot on the LLE for the past week. He is using a copper compression stocking on the R LE. He denies F/C/S. He has a new opening on the R LE that has clear fluid seeping from it. He had his venous studies done earlier today. Progress of Wound: 02/15/20 He developed large fluid filled bullae of the L>R LE 24 hours after Surepress wraps were initiated. He denies hx of Latex allergy. He was seen in the ED and placed on Clindamycin. He has had heartburn with the Clindamycin and he is taking Nexium PRN. He denies fevers/chills/sweats. No significant pain. 02/22/20 The R leg now has an opening on the anterior parker proximal to the ankle. He denies F/C/S/pain in the legs. They do feel tight. He does not weigh himself.......he is confused about why he has so much swelling when he is taking 2 diuretics? He has a scale at home but, he does not weigh himself regularly. - Physical Exam Vital Signs Temp Pulse Resp BP 97.6 F L 98 20 H 131/76 H 02/22/20 13:48 02/22/20 13:48 02/15/20 13:55 02/22/20 13:48 General: Alert, Oriented x3, Cooperative, No apparent distress HEENT: Atraumatic, - - His ears seemed edematous to me but, both Sudhakar and Katja say they look like what they normally look like. Cardiovascular: Regular rate, Regular Rhythm Abdomen: Soft, Non Tender, Non-Distended, Obese Extremities: Edema - he has increased edema of the RLE today and the scar from previous vein graft is much larger due to edema.......he also now has an area over the parker distally on the right that is pushed out above his skin due to edema. The calves are very firm with poor elasticity of the skin. Skin: Rash Present - on his face over the nasolabial folds BL and extending toward the forehead along the nose. The rash has an erythematous base with yellow scales. He gets this periodically. No significant rash in the [place] area. Wound Measurements and Assessment WC - Nurse 1 - General Ulcer Measurement Start: 02/15/20 13:55 Freq: Status: Active Protocol: Activity Type Activity Date Activity User E-Sign Co-Sign Detail Recorded Client Recorded Date Recorded By Document 02/22/20 13:48 MARYAN [id number] 02/22/20 13:51 MARYAN 02/22/20 13:48 Wound Center Nurse 1 [Ulcer Assessment] #1- L LAT LE -Current Size (cm) - Length 9 -Current Size (cm) - Width 9.1 -Current Size (cm) - Depth 0.1 -Total Square Cm 81.9 -Exudate Amt Small -Exudate Type Serosanguineous -Wound Margin Distinct, Outline Attached -Granulation Amt Medium (34-66%) -Granulation Quality Red -Texture (Cayla-wound Skin Appearance) Assessed, Localized Edema -Moisture (Cayla-wound Skin Appearance Assessed, ) Maceration -Temperature (Cayla-wound Skin No Abnormality Appearance) (Pt Warm) -Tenderness on Palpation (Cayla-wound No Skin Appearance) -Ulcer Cleansing Rinsed/ Irrigated with Saline -Foul Odor after Cleansing No -Anesthetic Used 4% Lidocaine Solution - Nurse 2 - General Ulcer CM Notes Start: 02/15/20 13:55 Freq: Status: Active Protocol: Activity Type Activity Date Activity User E-Sign Co-Sign Detail Recorded Client Recorded Date Recorded By Document 02/22/20 13:52 MW [id number] 02/22/20 13:53 MW 02/22/20 13:52 Wound Center Nurse 2 [Procedure/Treatment] -Time 13:52 -Correct Patient Yes -Correct Side, Site, Position Yes -Correct Procedure Yes -Procedure Performed No -Tunneling No -Undermining/Tunneling No -Circular Undermining No -Wound/Ulcer Outcome Not Healed -Ulcer Cleansing Not Cleansed -Foul Odor after Cleansing No -Bleeding Controlled with NA -Offloading No [See Physician Procedure note for Specifics] Pain Scale: 0-10 Numeric [Pain] -Is Patient Pain Free? Yes - Nurse 3 - General Ulcer D/C NN Start: 02/15/20 13:55 Freq: Status: Active Protocol: Activity Type Activity Date Activity User E-Sign Co-Sign Detail Recorded Client Recorded Date Recorded By Document 02/22/20 14:11 KR [id number] 02/22/20 14:12 KR 02/22/20 14:11 Wound Care Nurse 3 [Compression Applied] Left -Multi-Layered Wrap Application Unna Boot - Bilateral ($) -Unna Boots (Bilat) ($) 2 Pain Scale: 0-10 Numeric [Pain] -Is Patient Pain Free? Yes - Visit Discharge [Visit Discharge Information] -Discharge Condition Stable -Ambulatory Status Ambulatory -Transportation Private Auto -Accompanied by The denuded area on the left lateral leg below the new is mostly healed. There are still a few open areas with a small amount of bloody DC. The majority of the wound has now epithelialized. There is no purulent DC and no evidence of infection. No increased warmth to touch. The edema is pitting and tense up to the knee. He has dry skin. The R leg is much more swollen than last week with the cicatrix much more protuberant due to edema. The distal end of the cicatrix has broken open and there is increased erythema extending laterally and the area has increased warmth to touch. There is clear drainage from the small opening in the skin. There is no odor. There is also a patchy area of redness over the anterior upper leg. Sudhakar denies pain. A swab of the drainage from the RLE was taken and will be sent to the lab for C&S. Debridement Note Post-Debridement Measurements/Treatment WC - Nurse 2 - General Ulcer CM Notes Start: 02/15/20 13:55 Freq: Status: Active Protocol: Activity Type Activity Date Activity User E-Sign Co-Sign Detail Recorded Client Recorded Date Recorded By Document 02/15/20 15:58 PL [id number] 02/15/20 15:58 PL Document 02/22/20 13:52 MW [id number] 02/22/20 13:53 MW 02/15/20 02/22/20 15:58 13:52 Wound Center Nurse 2 #1- L LAT LE -Time 13:52 -Correct Patient Yes -Correct Side, Site, Position Yes -Correct Procedure Yes -Procedure Performed No No -Tunneling No -Undermining/Tunneling No -Circular Undermining No -Wound/Ulcer Outcome Not Healed -Ulcer Cleansing Not Cleansed -Foul Odor after Cleansing No -Bleeding Controlled with NA -Offloading No Pain Scale: 0-10 Numeric Is Patient Pain Free? Yes Yes ADAM - Nurse 3 - General Ulcer D/C NN Start: 02/15/20 13:55 Freq: Status: Active Protocol: Activity Type Activity Date Activity User E-Sign Co-Sign Detail Recorded Client Recorded Date Recorded By Document 02/15/20 14:32 MW [id number] 02/15/20 14:33 MW Document 02/22/20 14:11 KR [id number] 02/22/20 14:12 KR 02/15/20 02/22/20 14:32 14:11 Wound Care Nurse 3 #1- L LAT LE -Ulcer Cleansing Rinsed/ Irrigated with Saline -Foul Odor after Cleansing No -Negative Pressure Wound Therapy N/A -Other Covering UNNA BOOT Left -Multi-Layered Wrap Application Unna Boot - Unna Boot - Left ($) Bilateral ($) -Unna Boots (Bilat) ($) 2 Treatment Response Procedure Tolerated Well Pain Scale: 0-10 Numeric Is Patient Pain Free? Yes Teaching: Wound Center Compression Wraps & Stockings -Person Taught Patient -Teaching Method Discussion, Demonstration -Response to teaching Verbalize understanding WC - Visit Discharge Discharge Condition Stable Stable Ambulatory Status Ambulatory Ambulatory Transportation Private Auto Private Auto Accompanied by SELF Medication Reconcilliation completed & No provided to patient/care provider Clinical Summary of Care Provided Yes No debridement was completed today Assessment/Plan Active Problems Bullous dermatitis (Acute) suspect this is due to the Surepress wrap started last week for compression Assessment: Impressions. 1. stasis dermatitis of both LE's. 2. Chronic Venous stasis ulcer of the LLE with hypergranulation/hypertrophic healing in past with chronic raised well demarcated lesion. - healed. 3. morbid obesity. 4. DM II. 5. CAD with hx of CABG X 5 in 2010 - he hasa a keloid on the RLE from the site of the GSV graft. 6. HTN. 7. Parkinson's disease. 8. Tobacco dependence in remission. 9. Hyperlipidemia. 10. BPH. 11. paronychitis of the Left great toe - resolved with antibiotics. 12. contact dermatitis - suspect due to Surepres wrap which contains Latex. Possible Latex allergy? 13. 02/22/20 - cellulitis of the RLE. Seborrheic dermatitis of the face. Plan: 1. Duricef 1,000 mg BID for 7 days. 2. Nizoral cream BID to the rash on the face. 3. Continue Eucerin intensive repair to the LE's. 4. Reinforced with Sudhakar how improtant salt restriction is when trying to control edema. I asked him to start weighing himseld every morning and bring the record to me at the next visits. I also asked him to elevate ABOVE the level of the heart as much as possible. 5. Unna boots to both LE's today. 6. RTC on Friday to take the R unna boot off and examine for progress of the cellulitis. 7. Await the results of the venous studies. May need to consider getting Lymphedema pumps for him to control edema. 8. continue to urge him to lose weight. Office Visits / Consults: [id number] OV L3 Est
[2020-02-25 08:07] VITALS: BP 121/70; PULSE 105; RESP 20; TEMP 36.8; BMI 45.4
[2020-02-29 13:16] VITALS: BP 132/70; PULSE 89; RESP 20; TEMP 36.4; BMI 45.4
--- NOTE | 2020-02-29 13:59 | PCM.WC.PN ---
(1) Bullous dermatitis Status: Resolved Code(s): L13.9 - Bullous disorder, unspecified Comment: suspect this is due to the Surepress wrap started last week for compression (2) Venous stasis ulcer of calf limited to breakdown of skin Status: Resolved Code(s): I83.002 - Varicose veins of unspecified lower extremity with ulcer of calf; L97.201 - Non-pressure chronic ulcer of unspecified calf limited to breakdown of skin (3) Stasis dermatitis of both legs Status: Chronic Code(s): I87.2 - Venous insufficiency (chronic) (peripheral) (4) Venous insufficiency Status: Chronic Code(s): I87.2 - Venous insufficiency (chronic) (peripheral) (5) Biventricular CHF (congestive heart failure) Status: Acute Code(s): I50.82 - Biventricular heart failure Type of Wound Date of Service: 02/29/20 Chief Complaint: wound on the LLE distally History of Wound: He has had a raised area on the Left lateral and anterior pretibial area on the distal left leg since having his CABG 10 years ago. Recently it has been weeping and it is scaley. He recently had an exacerbation of COPD and has been on Zithromax and steroids. Has had increased swelling of the legs. Denies any hx of DVT or claudication. Had saphenous vein graft in the right lower extremity. His is unable to get compression stockings on. He has no lymphedema pumps. 02/22/20. He had an unna boot on the LLE for the past week. He is using a copper compression stocking on the R LE. He denies F/C/S. He has a new opening on the R LE that has clear fluid seeping from it. He had his venous studies done earlier today. Progress of Wound: 02/15/20 He developed large fluid filled bullae of the L>R LE 24 hours after Surepress wraps were initiated. He denies hx of Latex allergy. He was seen in the ED and placed on Clindamycin. He has had heartburn with the Clindamycin and he is taking Nexium PRN. He denies fevers/chills/sweats. No significant pain. 02/22/20 The R leg now has an opening on the anterior parker proximal to the ankle. He denies F/C/S/pain in the legs. They do feel tight. He does not weigh himself.......he is confused about why he has so much swelling when he is taking 2 diuretics? He has a scale at home but, he does not weigh himself regularly. 02/29/20 Now that he has been weighing himself he found out his weight went up > 20 lbs in a few days. He is more SOB. He saw his director [facility] yesterday and admission for IV diuresis was recommended. Sudhakar did not want to be admitted. The dose of the PO Lasis was increased. He now has pitting edema in the flanks. - Physical Exam Vital Signs Temp Pulse Resp BP 97.5 F L 89 20 H 132/70 H 02/29/20 13:16 02/29/20 13:16 02/29/20 13:16 02/29/20 13:16 General: Alert, Oriented x3, Cooperative, - - his face appears lissette and he has increased RR Oral: Moist Mucosa Lungs: Diminished, Rales, Short of Breath, Tachypneic, Wheezes, - - no accessory muscle use. When I had him take deep breaths he had a coughing paroxysm and got very red in the face. Cardiovascular: - - distant heart sounds. No MM appreciated. can not assess for gallop......can not hear well enough over the BS's Abdomen: Non Tender, Obese, - - he has pitting edema in the flanks BL Extremities: No cyanosis, Edema, - - dependent rubor in the feet. The edema in the legs is better than last week. the cicatrix is no longer raised and There is some wrinkling of the skin of the feet. the openings in the skin have closed. There are a few scabs. Wound Measurements and Assessment WC - Nurse 1 - General Ulcer Measurement Start: 02/15/20 13:55 Freq: Status: Active Protocol: Activity Type Activity Date Activity User E-Sign Co-Sign Detail Recorded Client Recorded Date Recorded By Document 02/29/20 13:16 MW [id number] 02/29/20 13:20 MW 02/29/20 13:16 Wound Center Nurse 1 [Ulcer Assessment] #1- L LAT LE -Combined with other wound No -Current Size (cm) - Length 0.1 -Current Size (cm) - Width 0.1 -Current Size (cm) - Depth 0.1 -Total Square Cm 0.01 [Edema Assessment] -Lower Limb Edema Present Yes -Right Calf (cm) 51.5 -Right Ankle (cm) 29.4 -Left Calf (cm) 47.6 -Left Ankle (cm) 27.5 ADAM - Nurse 2 - General Ulcer CM Notes Start: 02/15/20 13:55 Freq: Status: Active Protocol: Activity Type Activity Date Activity User E-Sign Co-Sign Detail Recorded Client Recorded Date Recorded By Document 02/29/20 13:25 MW [id number] 02/29/20 13:37 MW 02/29/20 13:25 Wound Center Nurse 2 [Procedure/Treatment] #1- L LAT LE -Time 13:25 -Correct Patient Yes -Correct Side, Site, Position Yes -Correct Procedure Yes -Procedure Performed No -Post Debridement (cm) - Length 0 -Post Debridement (cm) - Width 0 -Post Debridement (cm) - Depth 0 -Total Square (Post) (cm) 0 -Wound/Ulcer Outcome Healed- Epithelialized -Ulcer Cleansing Not Cleansed [See Physician Procedure note for Specifics] Pain Scale: 0-10 Numeric [Pain] -Is Patient Pain Free? Yes ADAM - Nurse 3 - General Ulcer D/C NN Start: 02/15/20 13:55 Freq: Status: Active Protocol: Activity Type Activity Date Activity User E-Sign Co-Sign Detail Recorded Client Recorded Date Recorded By Document 02/29/20 13:37 MW [id number] 02/29/20 13:38 MW 02/29/20 13:37 Wound Care Nurse 3 [Compression Applied] Bilateral LE -Lotion applied to leg before No compression wrap -Multi-Layered Wrap Application Unna Boot - Bilateral ($) -Unna Boots (Bilat) ($) 2 Left -Lotion applied to leg before No compression wrap [Post Procedure Tolerated] -Treatment Response Procedure Tolerated Well Pain Scale: 0-10 Numeric [Pain] -Is Patient Pain Free? Yes Teaching: Wound Center [Wound Center Education] (Items with an * have Printed Materials Available- Please identify what is given to patient under the Teaching materials given to patient and caregiver Section. Control Swelling with Leg Elevation -Person Taught Patient,Family -Teaching Method Discussion -Response to teaching Verbalize understanding Compression Wraps & Stockings -Person Taught Patient,Family -Teaching Method Discussion -Response to teaching Verbalize understanding WC - Visit Discharge [Visit Discharge Information] -Discharge Condition Stable -Ambulatory Status Ambulatory -Transportation Private Auto -Accompanied by -Medication Reconcilliation completed No & provided to patient/care provider -Clinical Summary of Care Provided Yes see the PE already documented. Debridement Note Post-Debridement Measurements/Treatment WC - Nurse 2 - General Ulcer CM Notes Start: 02/15/20 13:55 Freq: Status: Active Protocol: Activity Type Activity Date Activity User E-Sign Co-Sign Detail Recorded Client Recorded Date Recorded By Document 02/15/20 15:58 PL [id number] 02/15/20 15:58 PL Document 02/22/20 13:52 MW [id number] 02/22/20 13:53 MW Document 02/25/20 08:10 MW [id number] 02/25/20 08:16 MW Document 02/29/20 13:25 MW [id number] 02/29/20 13:37 MW 02/15/20 02/22/20 02/25/20 15:58 13:52 08:10 Wound Center Nurse 2 #1- L LAT LE -Time 13:52 08:10 -Correct Patient Yes Yes -Correct Side, Site, Position Yes Yes -Correct Procedure Yes Yes -Procedure Performed No No No -Post Debridement (cm) - Length -Post Debridement (cm) - Width -Post Debridement (cm) - Depth -Total Square (Post) (cm) -Tunneling No No -Undermining/Tunneling No No -Circular Undermining No No -Wound/Ulcer Outcome Not Healed Healed- Epithelialized -Ulcer Cleansing Not Cleansed -Foul Odor after Cleansing No No -Bioengineered Tissue No -Bleeding Controlled with NA NA -Offloading No No Pain Scale: 0-10 Numeric Is Patient Pain Free? Yes Yes No 02/29/20 13:25 Wound Center Nurse 2 #1- L LAT LE -Time 13:25 -Correct Patient Yes -Correct Side, Site, Position Yes -Correct Procedure Yes -Procedure Performed No -Post Debridement (cm) - Length 0 -Post Debridement (cm) - Width 0 -Post Debridement (cm) - Depth 0 -Total Square (Post) (cm) 0 -Tunneling -Undermining/Tunneling -Circular Undermining -Wound/Ulcer Outcome Healed- Epithelialized -Ulcer Cleansing Not Cleansed -Foul Odor after Cleansing -Bioengineered Tissue -Bleeding Controlled with -Offloading Pain Scale: 0-10 Numeric Is Patient Pain Free? Yes WC - Nurse 3 - General Ulcer D/C NN Start: 02/15/20 13:55 Freq: Status: Active Protocol: Activity Type Activity Date Activity User E-Sign Co-Sign Detail Recorded Client Recorded Date Recorded By Document 02/15/20 14:32 MW [id number] 02/15/20 14:33 MW Document 02/22/20 14:11 KR [id number] 02/22/20 14:12 KR Document 02/25/20 08:41 KR [id number] 02/25/20 08:42 KR Document 02/29/20 13:37 MW [id number] 02/29/20 13:38 MW 02/15/20 02/22/20 02/25/20 14:32 14:11 08:41 Wound Care Nurse 3 #1- L LAT LE -Ulcer Cleansing Rinsed/ Rinsed/ Irrigated with Irrigated with Saline Saline -Foul Odor after Cleansing No No -Negative Pressure Wound Therapy N/A -Other Covering UNNA BOOT Bilateral LE -Lotion applied to leg before compression wrap -Multi-Layered Wrap Application -Unna Boots (Bilat) ($) Left -Lotion applied to leg before compression wrap -Multi-Layered Wrap Application Unna Boot - Unna Boot - Unna Boot - Left ($) Bilateral ($) Bilateral ($) -Unna Boots (Bilat) ($) 2 2 Treatment Response Procedure Tolerated Well Pain Scale: 0-10 Numeric Is Patient Pain Free? Yes Teaching: Wound Center Control Swelling with Leg Elevation -Person Taught -Teaching Method -Response to teaching Compression Wraps & Stockings -Person Taught Patient -Teaching Method Discussion, Demonstration -Response to teaching Verbalize understanding WC - Visit Discharge Discharge Condition Stable Stable Ambulatory Status Ambulatory Ambulatory Transportation Private Auto Private Auto Accompanied by SELF Medication Reconcilliation completed & No provided to patient/care provider Clinical Summary of Care Provided Yes 02/29/20 13:37 Wound Care Nurse 3 #1- L LAT LE -Ulcer Cleansing -Foul Odor after Cleansing -Negative Pressure Wound Therapy -Other Covering Bilateral LE -Lotion applied to leg before No compression wrap -Multi-Layered Wrap Application Unna Boot - Bilateral ($) -Unna Boots (Bilat) ($) 2 Left -Lotion applied to leg before No compression wrap -Multi-Layered Wrap Application -Unna Boots (Bilat) ($) Treatment Response Procedure Tolerated Well Pain Scale: 0-10 Numeric Is Patient Pain Free? Yes Teaching: Wound Center Control Swelling with Leg Elevation -Person Taught Patient,Family -Teaching Method Discussion -Response to teaching Verbalize understanding Compression Wraps & Stockings -Person Taught Patient,Family -Teaching Method Discussion -Response to teaching Verbalize understanding WC - Visit Discharge Discharge Condition Stable Ambulatory Status Ambulatory Transportation Private Auto Accompanied by Medication Reconcilliation completed & No provided to patient/care provider Clinical Summary of Care Provided Yes No debridement was completed today Assessment/Plan Active Problems Venous insufficiency (Chronic) Stasis dermatitis of both legs (Chronic) Biventricular CHF (congestive heart failure) (Acute) Assessment: Impressions. 1. stasis dermatitis of both LE's. 2. Chronic Venous stasis ulcer of the LLE with hypergranulation/hypertrophic healing in past with chronic raised well demarcated lesion. - healed. 3. morbid obesity. 4. DM II. 5. CAD with hx of CABG X 5 in 2009 - he hasa a keloid on the RLE from the site of the GSV graft. 6. HTN. 7. Parkinson's disease. 8. Tobacco dependence in remission. 9. Hyperlipidemia. 10. BPH. 11. paronychitis of the Left great toe - resolved with antibiotics. 12. contact dermatitis - suspect due to Surepres wrap which contains Latex. Possible Latex allergy? 13. 02/22/20 - cellulitis of the RLE. Seborrheic dermatitis of the face. 02/29/20. 1. Acute biventricular CHF. 2. I suspect he has pulmonary HTN - possibly due to pulmonary HTN. 3. He grew Kocuria Rhizophila from the open wound on the R leg last week.........the wound is now closed and there is no evidence of infection. there were no WBC's on the gram stain. No antibiotics at this time......for a mild infection would use Minocycline or Augmentin and for severe would use Linezolide or Vanco. Plan: 1. Duricef 1,000 mg BID for 7 days. 2. Nizoral cream BID to the rash on the face. 3. Continue Eucerin intensive repair to the LE's. 4. Reinforced with Sudhakar how improtant salt restriction is when trying to control edema. I asked him to start weighing himseld every morning and bring the record to me at the next visits. I also asked him to elevate ABOVE the level of the heart as much as possible. 5. Unna boots to both LE's today. 6. RTC on Friday to take the R unna boot off and examine for progress of the cellulitis. 7. Await the results of the venous studies. May need to consider getting Lymphedema pumps for him to control edema. 8. continue to urge him to lose weight. 02/29/20. I explained why oral diuretics do not work in this instance and I also explained that he could go into kidney failure if this is not treated because the fluid is trapped in the tissue and there is decreased IV volume that causes decreased renal blood flow which leads to the release of renin and aldosterone which increases sodium reabsorption and leads to HTN and worsening edema. I answered his questions and in the end he asked his to call the director [employer] and arrange admission to [facility]. Unna boots were applied to prevent bullous formation in the legs due to edema. He will RTC in 1 week. Office Visits / Consults: [id number] OV L3 Est
--- NOTE | 2020-03-08 15:03 | WC ---
Spoke to Dr. Cai at 1000 this morning due to patient appointment being moved and rescheduled to next week on 03/15/20. Patient is currently being treated with unna boots. Dr. Cai would like the patient to come in for a nurse visit this week to re-apply unna boots. Called and spoke to patient . She stated he was in the hospital in [place] last week from Friday02/29/20 to Friday03/03/20. The hospital staff had cut his unna boots off last week. The stated his legs look great and she wasn't sure a nurse visit was necessary this week. She stated her wasn't home this morning and she would talk to him later today. If he changed his mind and wanted to come in for a nurse visit they would let us know. Received a call from patient this afternoon around 1430. She stated patient changed his mind and does want to come in for a nurse visit to have unna boots re-applied. Scheduled appt for tomorrow 03/09/20 at 1130.
[2020-03-09 11:37] VITALS: BP 188/79; PULSE 83; RESP 22; TEMP 36.8; BMI 45.4
== END 2020-03-12 23:59 ==
LOC: WC 11:30
PROVIDERS: PCP General Practice; Referring Provider General Practice; Visit Provider Internal Medicine
DX: L13.9 Bullous disorder, unspecified (principal); L21.9 Seborrheic dermatitis, unspecified; L25.9 Unspecified contact dermatitis, unspecified cause; I87.2 Venous insufficiency (chronic) (peripheral); M79.89 Other specified soft tissue disorders; I11.0 Hypertensive heart disease with heart failure; I50.82 Biventricular heart failure; E11.9 Type 2 diabetes mellitus without complications; J44.9 Chronic obstructive pulmonary disease, unspecified; G20 Parkinson's disease; E78.5 Hyperlipidemia, unspecified; N40.0 Benign prostatic hyperplasia without lower urinary tract symptoms; E66.01 Morbid (severe) obesity due to excess calories; Z79.4 Long term (current) use of insulin; Z79.899 Other long term (current) drug therapy; Z87.891 Personal history of nicotine dependence; Z95.1 Presence of aortocoronary bypass graft
CPT/HCPCS: 29580; 87070; 87075; 87077; 87205; 93970; 99212; 99213; G0463

== ENCOUNTER 2020-04-04 14:30 | Outpatient (RCR) | payer MEDICARE, SELFPAY ==
[2020-03-13 00:34] VITALS: BP 188/79; PULSE 83; RESP 22; TEMP 36.8
[2020-03-14 14:19] VITALS: BP 123/73; PULSE 100; RESP 20; TEMP 36.6; BMI 45.4
--- NOTE | 2020-03-15 12:15 | PN.PCM_ITS ---
(1) Stasis dermatitis of both legs Status: Chronic Code(s): I87.2 - Venous insufficiency (chronic) (peripheral) (2) Venous insufficiency Status: Chronic Code(s): I87.2 - Venous insufficiency (chronic) (peripheral) Type of Wound Date of Service: 03/20/20 Chief Complaint: wound on the LLE distally History of Wound: He has had a raised area on the Left lateral and anterior pretibial area on the distal left leg since having his CABG 10 years ago. Recently it has been weeping and it is scaley. He recently had an exacerbation of COPD and has been on Zithromax and steroids. Has had increased swelling of the legs. Denies any hx of DVT or claudication. Had saphenous vein graft in the right lower extremity. His is unable to get compression stockings on. He has no lymphedema pumps. 02/22/20. He had an unna boot on the LLE for the past week. He is using a copper compression stocking on the R LE. He denies F/C/S. He has a new opening on the R LE that has clear fluid seeping from it. He had his venous studies done earlier today. Progress of Wound: 02/15/20 He developed large fluid filled bullae of the L>R LE 24 hours after Surepress wraps were initiated. He denies hx of Latex allergy. He was seen in the ED and placed on Clindamycin. He has had heartburn with the Clindamycin and he is taking Nexium PRN. He denies fevers/chills/sweats. No significant pain. 02/22/20 The R leg now has an opening on the anterior parker proximal to the ankle. He denies F/C/S/pain in the legs. They do feel tight. He does not weigh himself.......he is confused about why he has so much swelling when he is taking 2 diuretics? He has a scale at home but, he does not weigh himself regularly. 02/29/20 Now that he has been weighing himself he found out his weight went up > 20 lbs in a few days. He is more SOB. He saw his exceptional student education teacher yesterday and admission for IV diuresis was recommended. Sudhakar did not want to be admitted. The dose of the PO Lasis was increased. He now has pitting edema in the flanks. 03/14/20 He lost 40 lbs in the hospital recently with diuresis. He is not as fatigued or SOB. The swelling in the legs is much improved and there are no openings in the skin. He has had BL unna boots this past week. - Physical Exam Vital Signs Temp Pulse Resp BP 97.8 F 100 20 H 123/73 H 03/14/20 14:19 03/14/20 14:19 03/14/20 14:19 03/14/20 14:19 Wound Measurements and Assessment WC - Nurse 1 - General Ulcer Measurement Start: 03/14/20 14:19 Freq: Status: Active Protocol: Activity Type Activity Date Activity User E-Sign Co-Sign Detail Recorded Client Recorded Date Recorded By Document 03/14/20 14:19 MW [id number] 03/14/20 14:23 MW 03/14/20 14:19 Wound Center Nurse 1 [Ulcer Assessment] #1- L LAT LE -Combined with other wound No -Current Size (cm) - Length 0.1 -Current Size (cm) - Width 0.1 -Current Size (cm) - Depth 0.1 -Total Square Cm 0.01 -Photo Taken No -Epithelialization Large 67-100% -Tunneling No -Undermining/Tunneling No -Circular Undermining No -Exudate Amt None Present -Wound Margin Flat & Intact -Granulation Amt None Present (0 %) -Granulation Quality N/A -Slough/Fibrin No -Necrosis Amt None Present (0 %) -Structure Exposed N/A -Texture (Cayla-wound Skin Appearance) Assessed, Localized Edema ,Scarring -Moisture (Cayla-wound Skin Appearance No Abnormality, ) Assessed -Color (Cayla-wound Skin Appearance) Assessed, Hemosiderin Staining -Temperature (Cayla-wound Skin No Abnormality Appearance) (Pt Warm) -Tenderness on Palpation (Cayla-wound Yes Skin Appearance) -Ulcer Cleansing Not Cleansed -Foul Odor after Cleansing No [Edema Assessment] -Lower Limb Edema Present Yes -Right Calf (cm) 49.5 -Right Ankle (cm) 29.0 -Left Calf (cm) 46.5 -Left Ankle (cm) 27.0 WC - Nurse 2 - General Ulcer CM Notes Start: 03/14/20 14:19 Freq: Status: Active Protocol: Activity Type Activity Date Activity User E-Sign Co-Sign Detail Recorded Client Recorded Date Recorded By Document 03/14/20 14:33 MW [id number] 03/14/20 14:42 MW 03/14/20 14:33 Wound Center Nurse 2 [Procedure/Treatment] #1- L LAT LE -Time 14:37 -Correct Patient Yes -Correct Side, Site, Position Yes -Correct Procedure Yes -Procedure Performed No -Post Debridement (cm) - Length 0 -Post Debridement (cm) - Width 0 -Post Debridement (cm) - Depth 0 -Total Square (Post) (cm) 0 -Wound/Ulcer Outcome Healed- Epithelialized -Bleeding Controlled with NA [See Physician Procedure note for Specifics] Pain Scale: 0-10 Numeric [Pain] -Is Patient Pain Free? Yes - Nurse 3 - General Ulcer D/C NN Start: 03/14/20 14:19 Freq: Status: Active Protocol: Activity Type Activity Date Activity User E-Sign Co-Sign Detail Recorded Client Recorded Date Recorded By Document 03/14/20 14:42 MW [id number] 03/14/20 14:43 MW 03/14/20 14:42 Wound Care Nurse 3 [Compression Applied] Right -Lotion applied to leg before No compression wrap -Compression Wrap Surepress ($) -Other ania wrap, surepress over ania wrap Left -Lotion applied to leg before No compression wrap -Multi-Layered Wrap Application Unna Boot - Left ($) [Post Procedure Tolerated] -Treatment Response Procedure Tolerated Well Pain Scale: 0-10 Numeric [Pain] -Is Patient Pain Free? Yes Teaching: Wound Center [Wound Center Education] (Items with an * have Printed Materials Available- Please identify what is given to patient under the Teaching materials given to patient and caregiver Section. Control Swelling with Leg Elevation -Person Taught Patient,Family -Teaching Method Discussion -Response to teaching Verbalize understanding Compression Wraps & Stockings -Person Taught Patient -Teaching Method Discussion -Response to teaching Verbalize understanding WC - Visit Discharge [Visit Discharge Information] -Discharge Condition Stable -Ambulatory Status Ambulatory -Transportation Private Auto -Accompanied by self -Medication Reconcilliation completed No & provided to patient/care provider -Clinical Summary of Care Provided Yes The stasis dermatitis is much improved now that he lost 40 lbs with diuresis and the legs have much less edema. He is weighing himself daily. He is watching his salt intake. There are no openings in the skin today. Debridement Note Post-Debridement Measurements/Treatment WC - Nurse 2 - General Ulcer CM Notes Start: 03/14/20 14:19 Freq: Status: Active Protocol: Activity Type Activity Date Activity User E-Sign Co-Sign Detail Recorded Client Recorded Date Recorded By Document 03/14/20 14:33 MW [id number] 03/14/20 14:42 MW 03/14/20 14:33 Wound Center Nurse 2 #1- L LAT LE -Time 14:37 -Correct Patient Yes -Correct Side, Site, Position Yes -Correct Procedure Yes -Procedure Performed No -Post Debridement (cm) - Length 0 -Post Debridement (cm) - Width 0 -Post Debridement (cm) - Depth 0 -Total Square (Post) (cm) 0 -Wound/Ulcer Outcome Healed- Epithelialized -Bleeding Controlled with NA Pain Scale: 0-10 Numeric Is Patient Pain Free? Yes - Nurse 3 - General Ulcer D/C NN Start: 03/14/20 14:19 Freq: Status: Active Protocol: Activity Type Activity Date Activity User E-Sign Co-Sign Detail Recorded Client Recorded Date Recorded By Document 03/14/20 14:42 MW [id number] 03/14/20 14:43 MW 03/14/20 14:42 Wound Care Nurse 3 Right -Lotion applied to leg before No compression wrap -Compression Wrap Surepress ($) -Other ania wrap, surepress over ania wrap Left -Lotion applied to leg before No compression wrap -Multi-Layered Wrap Application Unna Boot - Left ($) Treatment Response Procedure Tolerated Well Pain Scale: 0-10 Numeric Is Patient Pain Free? Yes Teaching: Wound Center Control Swelling with Leg Elevation -Person Taught Patient,Family -Teaching Method Discussion -Response to teaching Verbalize understanding Compression Wraps & Stockings -Person Taught Patient -Teaching Method Discussion -Response to teaching Verbalize understanding WC - Visit Discharge Discharge Condition Stable Ambulatory Status Ambulatory Transportation Private Auto Accompanied by self Medication Reconcilliation completed & No provided to patient/care provider Clinical Summary of Care Provided Yes No debridement was completed today Assessment/Plan Assessment: Impressions. 1. stasis dermatitis of both LE's. 2. Chronic Venous stasis ulcer of the LLE with hypergranulation/hypertrophic healing in past with chronic raised well demarcated lesion. - healed. 3. morbid obesity. 4. DM II. 5. CAD with hx of CABG X 5 in 2010 - he hasa a keloid on the RLE from the site of the GSV graft. 6. HTN. 7. Parkinson's disease. 8. Tobacco dependence in remission. 9. Hyperlipidemia. 10. BPH. 11. paronychitis of the Left great toe - resolved with antibiotics. 12. contact dermatitis - suspect due to Surepres wrap which contains Latex. Possible Latex allergy? 13. 02/22/20 - cellulitis of the RLE. Seborrheic dermatitis of the face. 02/29/20. 1. Acute biventricular CHF. 2. I suspect he has pulmonary HTN - possibly due to pulmonary HTN. 3. He grew Kocuria Rhizophila from the open wound on the R leg last week.........the wound is now closed and there is no evidence of infection. there were no WBC's on the gram stain. No antibiotics at this time......for a mild infection would use Minocycline or Augmentin and for severe would use Linezolide or Vanco. Plan: 1. I explained to Sudhakar and Gautam about Bullous pemphigus and how it is more common in people with PD. the bullae he had 1 day after the Surpress may be due to Bullous Phemphigus and not to a contact dermatitis. Will will wrap 1 leg with an unna boot today and the other leg with an ANIA and then the Surpress over top of the ANIA. When the wrap is taken off at bedtime Gautam will moisturize with Eucerin Intensive repair. He will return in 1 week to remove the unna boot and re-examine. If he develops any Bullae gautam will call me. If no bullae then will use Surpress on both legs and if in the future he develops bullae he will be referred to a aircraft systems technician for a skin bx. 2. We went over once again the importance of salt restriction in controlling edema and the need to maintain a certain weight from day to day and what to do if his weight continues to increase. Office Visits / Consults: [id number] OV L2 Est
[2020-03-21 13:15] VITALS: BP 113/64; PULSE 90; RESP 20; TEMP 36.6; BMI 45.4
--- NOTE | 2020-03-21 16:04 | PCM.WC.PN ---
(1) Stasis dermatitis of both legs Status: Chronic Code(s): I87.2 - Venous insufficiency (chronic) (peripheral) (2) Venous insufficiency Status: Chronic Code(s): I87.2 - Venous insufficiency (chronic) (peripheral) (3) Secondary lymphedema Status: Chronic Code(s): I89.0 - Lymphedema, not elsewhere classified Comment: due to chronic uncontrolled venous insufficiency/leg swelling and hx of multiple venous stasis ulcers Type of Wound Date of Service: 03/21/20 Chief Complaint: wound on the LLE distally History of Wound: He has had a raised area on the Left lateral and anterior pretibial area on the distal left leg since having his CABG 10 years ago. Recently it has been weeping and it is scaley. He recently had an exacerbation of COPD and has been on Zithromax and steroids. Has had increased swelling of the legs. Denies any hx of DVT or claudication. Had saphenous vein graft in the right lower extremity. His is unable to get compression stockings on. He has no lymphedema pumps. 02/22/20. He had an unna boot on the LLE for the past week. He is using a copper compression stocking on the R LE. He denies F/C/S. He has a new opening on the R LE that has clear fluid seeping from it. He had his venous studies done earlier today. Progress of Wound: Last week we placed an Unna boot on the LLE and we had his apply an ANIA wrap topped with a Surpress wrap on the RLE. She removed the wraps on the RLE last night and did not reapply this AM. He has no bullae or openings in the skin. I suspect it was a coincidence when he developed a large bullous on the RLE 1 day after the Surpres wrap was applied in the past. 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 His wt was stable for 1 week post hospitalization but he went to a [employer] party Friday and was not adhering to low salt and his wt has increased 3-4 lbs. - Physical Exam Vital Signs Temp Pulse Resp BP 97.9 F 90 20 H 113/64 03/21/20 13:15 03/21/20 13:15 03/21/20 13:15 03/21/20 13:15 Wound Measurements and Assessment WC - Nurse 1 - General Ulcer Measurement Start: 03/14/20 14:19 Freq: Status: Active Protocol: Activity Type Activity Date Activity User E-Sign Co-Sign Detail Recorded Client Recorded Date Recorded By Document 03/21/20 13:15 DL [id number] 03/21/20 13:20 DL 03/21/20 13:15 Wound Center Nurse 1 [Edema Assessment] -Right Calf (cm) 49.5 -Right Ankle (cm) 28 -Right Foot (cm) 44.5 -Left Calf (cm) 26.5 WC - Nurse 2 - General Ulcer CM Notes Start: 03/14/20 14:19 Freq: Status: Active Protocol: Activity Type Activity Date Activity User E-Sign Co-Sign Detail Recorded Client Recorded Date Recorded By Document 03/21/20 13:52 MW [id number] 03/21/20 13:56 MW 03/21/20 13:52 Pain Scale: 0-10 Numeric [Pain] -Is Patient Pain Free? No - Nurse 3 - General Ulcer D/C NN Start: 03/14/20 14:19 Freq: Status: Active Protocol: Activity Type Activity Date Activity User E-Sign Co-Sign Detail Recorded Client Recorded Date Recorded By Document 03/21/20 14:11 BM [id number] 03/21/20 14:11 [facility] 03/21/20 14:11 Wound Care Nurse 3 [Compression Applied] Right -Compression Wrap Surepress ($) Left -Compression Wrap Surepress ($) [Post Procedure Tolerated] -Treatment Response Procedure Tolerated Well Pain Scale: 0-10 Numeric [Pain] -Is Patient Pain Free? Yes - Visit Discharge [Visit Discharge Information] -Discharge Condition Stable -Ambulatory Status Ambulatory -Transportation Private Auto -Accompanied by the RLE is much larger than the left and suspect this is due to the fact that the Surepress wrap was removed last night and not reapplied today and he has had his RLE dependent most of the day. There are no openings in the skin. The skin is dry and scaley and they admit to not using the Eucerin Intensive Repair every day as instructed. The LLE looks good. The edema remains down and the skin is a little dry but nearly as dry and scaly as the RLE. There are no openings in the skin of either leg. Debridement Note Post-Debridement Measurements/Treatment WC - Nurse 2 - General Ulcer CM Notes Start: 03/14/20 14:19 Freq: Status: Active Protocol: Activity Type Activity Date Activity User E-Sign Co-Sign Detail Recorded Client Recorded Date Recorded By Document 03/14/20 14:33 MW [id number] 03/14/20 14:42 MW Document 03/21/20 13:52 MW [id number] 03/21/20 13:56 MW 03/14/20 03/21/20 14:33 13:52 Wound Center Nurse 2 #1- L LAT LE -Time 14:37 -Correct Patient Yes -Correct Side, Site, Position Yes -Correct Procedure Yes -Procedure Performed No -Post Debridement (cm) - Length 0 -Post Debridement (cm) - Width 0 -Post Debridement (cm) - Depth 0 -Total Square (Post) (cm) 0 -Wound/Ulcer Outcome Healed- Epithelialized -Bleeding Controlled with NA Pain Scale: 0-10 Numeric Is Patient Pain Free? Yes No WC - Nurse 3 - General Ulcer D/C NN Start: 03/14/20 14:19 Freq: Status: Active Protocol: Activity Type Activity Date Activity User E-Sign Co-Sign Detail Recorded Client Recorded Date Recorded By Document 03/14/20 14:42 MW [id number] 03/14/20 14:43 MW Document 03/21/20 14:11 [facility] [id number] 03/21/20 14:11 [facility] 03/14/20 03/21/20 14:42 14:11 Wound Care Nurse 3 Right -Lotion applied to leg before No compression wrap -Compression Wrap Surepress ($) Surepress ($) -Other ania wrap, surepress over ania wrap Left -Lotion applied to leg before No compression wrap -Multi-Layered Wrap Application Unna Boot - Left ($) -Compression Wrap Surepress ($) Treatment Response Procedure Procedure Tolerated Well Tolerated Well Pain Scale: 0-10 Numeric Is Patient Pain Free? Yes Yes Teaching: Wound Center Control Swelling with Leg Elevation -Person Taught Patient,Family -Teaching Method Discussion -Response to teaching Verbalize understanding Compression Wraps & Stockings -Person Taught Patient -Teaching Method Discussion -Response to teaching Verbalize understanding WC - Visit Discharge Discharge Condition Stable Stable Ambulatory Status Ambulatory Ambulatory Transportation Private Auto Private Auto Accompanied by self Medication Reconcilliation completed & No provided to patient/care provider Clinical Summary of Care Provided Yes No debridement was completed today Assessment/Plan Active Problems Venous insufficiency (Chronic) Stasis dermatitis of both legs (Chronic) Secondary lymphedema (Chronic) due to chronic uncontrolled venous insufficiency/leg swelling and hx of multiple venous stasis ulcers Assessment: Impressions. 1. stasis dermatitis of both LE's - R>L....not using the Eucerin every day as instructed. 2. Chronic venous insufficiency of both LE's with superimposed lymphedema secondary to this. 3. morbid obesity. 4. DM II. 5. CAD with hx of CABG X 5 in 2009 - he hasa a keloid on the RLE from the site of the GSV graft. 6. HTN. 7. Parkinson's disease. 8. Tobacco dependence in remission. 9. Hyperlipidemia. 10. BPH. 11. paronychitis of the Left great toe - resolved with antibiotics. 12. contact dermatitis - suspect due to Surepres wrap which contains Latex. Possible Latex allergy? I suspect he may have Bullous Pemphigoid as the etiolgy of the bullae that have been recurrent...... 13. 02/22/20 - cellulitis of the RLE. Seborrheic dermatitis of the face. 02/29/20. 1. Acute biventricular CHF. 2. I suspect he has pulmonary HTN - possibly due to pulmonary HTN. 3. He grew Kocuria Rhizophila from the open wound on the R leg last week.........the wound is now closed and there is no evidence of infection. there were no WBC's on the gram stain. No antibiotics at this time......for a mild infection would use Minocycline or Augmentin and for severe would use Linezolide or Vanco. Plan: 1. Apply ANIA wraps followed by Surpres Wraps to both LE's. 2. Moisturize the LE's from the toes to the knees at Least once a day. 3. Refer to nutrition clinic for instruction in salt restriction and wt loss. 4. refer for compression pumps to both LE's because I am skeptical that he will lose wt, comply with a 2 GM salt restriction or comply with elevation and compression as instructed. Office Visits / Consults: [id number] OV L2 Est
[2020-04-04 13:10] VITALS: BP 125/64; PULSE 95; RESP 18; TEMP 36.3; BMI 45.4
--- NOTE | 2020-04-04 13:47 | PCM.WC.PN ---
(1) Stasis dermatitis of both legs Status: Chronic Code(s): I87.2 - Venous insufficiency (chronic) (peripheral) (2) Venous insufficiency Status: Chronic Code(s): I87.2 - Venous insufficiency (chronic) (peripheral) (3) Secondary lymphedema Status: Chronic Code(s): I89.0 - Lymphedema, not elsewhere classified Comment: due to chronic uncontrolled venous insufficiency/leg swelling and hx of multiple venous stasis ulcers (4) Venous ulcer of right leg Status: Acute Code(s): I83.019 - Varicose veins of right lower extremity with ulcer of unspecified site; L97.919 - Non-pressure chronic ulcer of unspecified part of right lower leg with unspecified severity (5) Tinea pedis of both feet Status: Acute Code(s): B35.3 - Tinea pedis Type of Wound Date of Service: 04/18/20 Chief Complaint: wound on the LLE distally History of Wound: He has had a raised area on the Left lateral and anterior pretibial area on the distal left leg since having his CABG 10 years ago. Recently it has been weeping and it is scaley. He recently had an exacerbation of COPD and has been on Zithromax and steroids. Has had increased swelling of the legs. Denies any hx of DVT or claudication. Had saphenous vein graft in the right lower extremity. His is unable to get compression stockings on. He has no lymphedema pumps. 02/22/20. He had an unna boot on the LLE for the past week. He is using a copper compression stocking on the R LE. He denies F/C/S. He has a new opening on the R LE that has clear fluid seeping from it. He had his venous studies done earlier today. Progress of Wound: No reaction to the surepres wrap this week. Katja is no longer sony;memo the Surepress this week. He now has copper compression socks and Sudhakar is supposed to be applying these and moisturinzing his own legs. There are no openings in the skin of the L LE but his has an ulcer on the RLE over the distal parker. Denies fevers, chills and sweats. - Physical Exam Vital Signs Temp Pulse Resp BP 97.4 F L 95 18 125/64 H 04/04/20 13:10 04/04/20 13:10 04/04/20 13:10 04/04/20 13:10 Wound Measurements and Assessment WC - Nurse 1 - General Ulcer Measurement Start: 03/14/20 14:19 Freq: Status: Active Protocol: Activity Type Activity Date Activity User E-Sign Co-Sign Detail Recorded Client Recorded Date Recorded By Document 04/04/20 13:10 BM [id number] 04/04/20 13:16 [facility] 04/04/20 13:10 Wound Center Nurse 1 [Ulcer Assessment] #2- R LOWER PARKER -Combined with other wound No -Current Size (cm) - Length 1 -Current Size (cm) - Width 1 -Current Size (cm) - Depth 0.1 -Total Square Cm 1 -Date of Last Picture (Recall this 04/04/20 field) -Photo Taken Yes -Epithelialization None Present -Tunneling No -Undermining/Tunneling No -Circular Undermining No -Exudate Amt Small -Exudate Type Serosanguineous -Wound Margin Distinct, Outline Attached -Granulation Amt Medium (34-66%) -Granulation Quality Red -Slough/Fibrin Yes -Necrosis Amt Medium (34-66%) -Necrotic Tissue Type Adherent Slough -Texture (Cayla-wound Skin Appearance) Assessed, Scarring -Moisture (Cayla-wound Skin Appearance Assessed ) -Color (Cayla-wound Skin Appearance) Assessed, Hemosiderin Staining -Temperature (Cayla-wound Skin No Abnormality Appearance) (Pt Warm) -Tenderness on Palpation (Cayla-wound No Skin Appearance) -Ulcer Cleansing Rinsed/ Irrigated with Saline -Foul Odor after Cleansing No -Anesthetic Used 4% Lidocaine Solution [Edema Assessment] -Lower Limb Edema Present Yes -Right Calf (cm) 46 -Right Ankle (cm) 29 -Left Calf (cm) 42 -Left Ankle (cm) 29 WC - Nurse 2 - General Ulcer CM Notes Start: 03/14/20 14:19 Freq: Status: Active Protocol: Activity Type Activity Date Activity User E-Sign Co-Sign Detail Recorded Client Recorded Date Recorded By Document 04/04/20 13:27 MW [id number] 04/04/20 13:41 MW 04/04/20 13:27 Wound Center Nurse 2 [Procedure/Treatment] #2- R LOWER PARKER -Time 13:28 -Correct Patient Yes -Correct Side, Site, Position Yes -Correct Procedure Yes -Procedure Performed Yes -Type of Procedure Debridement -Clinical Debridement Subcutaneous -Tissue Removed Subcutaneous -Post Debridement (cm) - Length 0.9 -Post Debridement (cm) - Width 1.2 -Post Debridement (cm) - Depth 0.1 -Total Square (Post) (cm) 1.08 -Area of Debridement (cm) - Length 0.9 -Area of Debridement (cm) - Width 1.2 -Total Square (Area) (cm) 1.08 -Tunneling No -Undermining/Tunneling No -Circular Undermining No -Wound/Ulcer Outcome Not Healed -Ulcer Cleansing Rinsed/ Irrigated with Saline -Foul Odor after Cleansing No -Bioengineered Tissue No -Bleeding Controlled with Pressure -Offloading No -Debridement - Subq, 1st 20sq cm Yes [See Physician Procedure note for Specifics] Pain Scale: 0-10 Numeric [Pain] -Is Patient Pain Free? Yes Debridement Note Post-Debridement Measurements/Treatment WC - Nurse 2 - General Ulcer CM Notes Start: 03/14/20 14:19 Freq: Status: Active Protocol: Activity Type Activity Date Activity User E-Sign Co-Sign Detail Recorded Client Recorded Date Recorded By Document 03/14/20 14:33 MW [id number] 03/14/20 14:42 MW Document 03/21/20 13:52 MW [id number] 03/21/20 13:56 MW Document 04/04/20 13:27 MW [id number] 04/04/20 13:41 MW 03/14/20 03/21/20 04/04/20 14:33 13:52 13:27 Wound Center Nurse 2 #2- R LOWER PARKER -Time 13:28 -Correct Patient Yes -Correct Side, Site, Position Yes -Correct Procedure Yes -Procedure Performed Yes -Type of Procedure Debridement -Clinical Debridement Subcutaneous -Tissue Removed Subcutaneous -Post Debridement (cm) - Length 0.9 -Post Debridement (cm) - Width 1.2 -Post Debridement (cm) - Depth 0.1 -Total Square (Post) (cm) 1.08 -Area of Debridement (cm) - Length 0.9 -Area of Debridement (cm) - Width 1.2 -Total Square (Area) (cm) 1.08 -Tunneling No -Undermining/Tunneling No -Circular Undermining No -Wound/Ulcer Outcome Not Healed -Ulcer Cleansing Rinsed/ Irrigated with Saline -Foul Odor after Cleansing No -Bioengineered Tissue No -Bleeding Controlled with Pressure -Offloading No -Debridement - Subq, 1st 20sq cm Yes #1- L LAT LE -Time 14:37 -Correct Patient Yes -Correct Side, Site, Position Yes -Correct Procedure Yes -Procedure Performed No -Post Debridement (cm) - Length 0 -Post Debridement (cm) - Width 0 -Post Debridement (cm) - Depth 0 -Total Square (Post) (cm) 0 -Wound/Ulcer Outcome Healed- Epithelialized -Bleeding Controlled with NA Pain Scale: 0-10 Numeric Is Patient Pain Free? Yes No Yes - Nurse 3 - General Ulcer D/C NN Start: 03/14/20 14:19 Freq: Status: Active Protocol: Activity Type Activity Date Activity User E-Sign Co-Sign Detail Recorded Client Recorded Date Recorded By Document 03/14/20 14:42 MW [id number] 03/14/20 14:43 MW Document 03/21/20 14:11 [facility] [id number] 03/21/20 14:11 [facility] 03/14/20 03/21/20 14:42 14:11 Wound Care Nurse 3 Right -Lotion applied to leg before No compression wrap -Compression Wrap Surepress ($) Surepress ($) -Other elias wrap, surepress over elias wrap Left -Lotion applied to leg before No compression wrap -Multi-Layered Wrap Application Unna Boot - Left ($) -Compression Wrap Surepress ($) Treatment Response Procedure Procedure Tolerated Well Tolerated Well Pain Scale: 0-10 Numeric Is Patient Pain Free? Yes Yes Teaching: Wound Center Control Swelling with Leg Elevation -Person Taught Patient,Family -Teaching Method Discussion -Response to teaching Verbalize understanding Compression Wraps & Stockings -Person Taught Patient -Teaching Method Discussion -Response to teaching Verbalize understanding WC - Visit Discharge Discharge Condition Stable Stable Ambulatory Status Ambulatory Ambulatory Transportation Private Auto Private Auto Accompanied by self Medication Reconcilliation completed & No provided to patient/care provider Clinical Summary of Care Provided Yes Laterality: Right Type of Debridement: Excisional debridement Anesthesia Used: 4% Lidocaine Solution Depth: Down to and including healthy tissue, in the subcutaneous layer Percentage of wound debrided: 100 Instrument Used: 5mm curette Severity: Fat Layer Exposed Amount of bleeding with debridement: Mild Bleeding Controlled with: Pressure Patient tolerated procedure well Assessment/Plan Active Problems Venous insufficiency (Chronic) Stasis dermatitis of both legs (Chronic) Secondary lymphedema (Chronic) due to chronic uncontrolled venous insufficiency/leg swelling and hx of multiple venous stasis ulcers Venous ulcer of right leg (Acute) Tinea pedis of both feet (Acute) Assessment: Impressions. 1. venous stasis ulcer of the RLE. 2. chronic venous insufficiency with superimposed lymphedema. 3. possible bullous pemphigoid with intermittent large bullae on the distal LE's.....this is more common in patients with PD Plan: Continue the copper compressions socks. Unna boot to the RLE......first apply Belen. Clotrimazole onitment to Left foot BID - tops, bottoms and between the toe. Elevate both legs with sitting. discussed the ECHO - pulmonary HTN and diastolic dysfunction Office Visits / Consults: [id number] OV L2 Est
== END 2020-04-09 23:59 ==
LOC: WC 14:30
PROVIDERS: PCP General Practice; Referring Provider General Practice; Visit Provider Internal Medicine
DX: I83.018 Varicose veins of right lower extremity with ulcer other part of lower leg (principal); L97.812 Non-pressure chronic ulcer of other part of right lower leg with fat layer exposed; L13.9 Bullous disorder, unspecified; L21.9 Seborrheic dermatitis, unspecified; I87.2 Venous insufficiency (chronic) (peripheral); M79.89 Other specified soft tissue disorders; L25.9 Unspecified contact dermatitis, unspecified cause; I89.0 Lymphedema, not elsewhere classified; B35.3 Tinea pedis; I11.0 Hypertensive heart disease with heart failure; I50.82 Biventricular heart failure; I25.10 Atherosclerotic heart disease of native coronary artery without angina pectoris; G20 Parkinson's disease; J44.9 Chronic obstructive pulmonary disease, unspecified; E11.9 Type 2 diabetes mellitus without complications; E78.5 Hyperlipidemia, unspecified; N40.0 Benign prostatic hyperplasia without lower urinary tract symptoms; E66.01 Morbid (severe) obesity due to excess calories; Z79.4 Long term (current) use of insulin; Z79.899 Other long term (current) drug therapy; Z95.1 Presence of aortocoronary bypass graft
CPT/HCPCS: 11042; 29580; 99212; 99213; G0463

== ENCOUNTER 2020-04-25 13:15 | Outpatient (RCR) | payer MEDICARE, SELFPAY ==
[2020-04-10 00:29] VITALS: BP 125/64; PULSE 95; RESP 18; TEMP 36.3
[2020-04-11 14:03] VITALS: BP 100/56; PULSE 85; RESP 20; TEMP 37.1; BMI 45.4
--- NOTE | 2020-04-14 12:33 | PCM.WC.PN ---
(1) Venous stasis ulcer Status: Acute Qualifiers: Venous stasis ulcer site: other part of lower leg Varicose vein presence: with varicose veins Laterality: right Non-pressure ulcer stage: with fat layer exposed Qualified Code(s): I83.018 - Varicose veins of right lower extremity with ulcer other part of lower leg; L97.812 - Non-pressure chronic ulcer of other part of right lower leg with fat layer exposed Code(s): I83.009 - Varicose veins of unspecified lower extremity with ulcer of unspecified site; L97.909 - Non-pressure chronic ulcer of unspecified part of unspecified lower leg with unspecified severity Comment: healed (2) Venous insufficiency Status: Chronic Code(s): I87.2 - Venous insufficiency (chronic) (peripheral) Type of Wound Date of Service: 04/18/20 Chief Complaint: wound on the LLE distally History of Wound: He has had a raised area on the Left lateral and anterior pretibial area on the distal left leg since having his CABG 10 years ago. Recently it has been weeping and it is scaley. He recently had an exacerbation of COPD and has been on Zithromax and steroids. Has had increased swelling of the legs. Denies any hx of DVT or claudication. Had saphenous vein graft in the right lower extremity. His is unable to get compression stockings on. He has no lymphedema pumps. 02/22/20. He had an unna boot on the LLE for the past week. He is using a copper compression stocking on the R LE. He denies F/C/S. He has a new opening on the R LE that has clear fluid seeping from it. He had his venous studies done earlier today. Progress of Wound: The venous stasis ulcer of the RLE over the distal parker has healed with the application of Belen followd by an unna boot. No bullae today. Says his weight is stable. Katja is watching the salt intake with her cooking. Sudhakar admits to not applying the moisturizer to his legs as directed. He is wearing the compression socks. - Physical Exam Vital Signs Temp Pulse Resp BP 98.7 F 85 20 H 100/56 L 04/11/20 14:03 04/11/20 14:03 04/11/20 14:03 04/11/20 14:03 Lungs: Clear to auscultation, Diminished Extremities: Edema - much better than originally seen due to better compliance with salt restriction and weight management Skin: - - He has fungal infection both feet....no openings in the skin but with scaley yellow white adherent flakes diffusely Wound Measurements and Assessment WC - Nurse 1 - General Ulcer Measurement Start: 04/11/20 13:46 Freq: Status: Active Protocol: Activity Type Activity Date Activity User E-Sign Co-Sign Detail Recorded Client Recorded Date Recorded By Document 04/11/20 14:03 [facility] [id number] 04/11/20 14:05 [facility] 04/11/20 14:03 Wound Center Nurse 1 [Ulcer Assessment] #2- R LOWER PARKER -Current Size (cm) - Length 0.1 -Current Size (cm) - Width 0.1 -Current Size (cm) - Depth 0.1 -Total Square Cm 0.01 -Photo Taken No -Exudate Amt None Present -Wound Margin Flat & Intact -Granulation Amt Large (67-100%) -Granulation Quality [place] -Necrosis Amt None Present (0 %) -Structure Exposed N/A -Texture (Cayla-wound Skin Appearance) Scarring -Moisture (Cayla-wound Skin Appearance No Abnormality ) -Color (Acyla-wound Skin Appearance) No Abnormality -Temperature (Cayla-wound Skin No Abnormality Appearance) (Pt Warm) -Tenderness on Palpation (Cayla-wound No Skin Appearance) -Ulcer Cleansing Rinsed/ Irrigated with Saline -Foul Odor after Cleansing No [Edema Assessment] -Right Calf (cm) 47 -Right Ankle (cm) 28 -Left Calf (cm) 45.5 -Left Ankle (cm) 27.8 - Nurse 2 - General Ulcer CM Notes Start: 04/11/20 13:46 Freq: Status: Active Protocol: Activity Type Activity Date Activity User E-Sign Co-Sign Detail Recorded Client Recorded Date Recorded By Document 04/11/20 14:49 MW [id number] 04/11/20 14:50 MW 04/11/20 14:49 Wound Center Nurse 2 [Procedure/Treatment] #2- R LOWER PARKER -Time 14:49 -Correct Patient Yes -Correct Side, Site, Position Yes -Correct Procedure Yes -Procedure Performed No -Post Debridement (cm) - Length 0 -Post Debridement (cm) - Width 0 -Post Debridement (cm) - Depth 0 -Total Square (Post) (cm) 0 -Wound/Ulcer Outcome Healed- Epithelialized [See Physician Procedure note for Specifics] WC - Nurse 3 - General Ulcer D/C NN Start: 04/11/20 13:46 Freq: Status: Active Protocol: Activity Type Activity Date Activity User E-Sign Co-Sign Detail Recorded Client Recorded Date Recorded By Document 04/11/20 14:52 MW [id number] 04/11/20 14:53 MW 04/11/20 14:52 Wound Care Nurse 3 [Post Procedure Tolerated] -Treatment Response Procedure Tolerated Well Teaching: Wound Center [Wound Center Education] (Items with an * have Printed Materials Available- Please identify what is given to patient under the Teaching materials given to patient and caregiver Section. Control Swelling with Leg Elevation -Person Taught Patient,Family -Teaching Method Discussion -Response to teaching Verbalize understanding Compression Wraps & Stockings -Person Taught Patient,Family -Teaching Method Discussion -Response to teaching Verbalize understanding WC - Visit Discharge [Visit Discharge Information] -Discharge Condition Stable -Ambulatory Status Ambulatory -Transportation Private Auto -Accompanied by -Medication Reconcilliation completed No & provided to patient/care provider -Clinical Summary of Care Provided Yes The ulcer on the RLE is completely healed. the skin of the LE's is very dry and cracking. His has been entrusting Sudhakar with the task of moisturizing the legs and he has not been doing this. He tells me that his weight is stable and Katja is watching the salt intake. Debridement Note Post-Debridement Measurements/Treatment WC - Nurse 2 - General Ulcer CM Notes Start: 04/11/20 13:46 Freq: Status: Active Protocol: Activity Type Activity Date Activity User E-Sign Co-Sign Detail Recorded Client Recorded Date Recorded By Document 04/11/20 14:49 MW [id number] 04/11/20 14:50 MW 04/11/20 14:49 Wound Center Nurse 2 #2- R LOWER PARKER -Time 14:49 -Correct Patient Yes -Correct Side, Site, Position Yes -Correct Procedure Yes -Procedure Performed No -Post Debridement (cm) - Length 0 -Post Debridement (cm) - Width 0 -Post Debridement (cm) - Depth 0 -Total Square (Post) (cm) 0 -Wound/Ulcer Outcome Healed- Epithelialized WC - Nurse 3 - General Ulcer D/C NN Start: 04/11/20 13:46 Freq: Status: Active Protocol: Activity Type Activity Date Activity User E-Sign Co-Sign Detail Recorded Client Recorded Date Recorded By Document 04/11/20 14:52 MW [id number] 04/11/20 14:53 MW 04/11/20 14:52 Wound Care Nurse 3 Treatment Response Procedure Tolerated Well Teaching: Wound Center Control Swelling with Leg Elevation -Person Taught Patient,Family -Teaching Method Discussion -Response to teaching Verbalize understanding Compression Wraps & Stockings -Person Taught Patient,Family -Teaching Method Discussion -Response to teaching Verbalize understanding WC - Visit Discharge Discharge Condition Stable Ambulatory Status Ambulatory Transportation Private Auto Accompanied by Medication Reconcilliation completed & No provided to patient/care provider Clinical Summary of Care Provided Yes No debridement was completed today Assessment/Plan Assessment: Impressions. 1. stasis dermatitis of both LE's - R>L....not using the Eucerin every day as instructed. 2. Chronic venous insufficiency of both LE's with superimposed lymphedema secondary to this. 3. morbid obesity. 4. DM II. 5. CAD with hx of CABG X 5 in 2009 - he hasa a keloid on the RLE from the site of the GSV graft. 6. HTN. 7. Parkinson's disease. 8. Tobacco dependence in remission. 9. Hyperlipidemia. 10. BPH. 11. paronychitis of the Left great toe - resolved with antibiotics. 12. contact dermatitis - suspect due to Surepres wrap which contains Latex. Possible Latex allergy? I suspect he may have Bullous Pemphigoid as the etiolgy of the bullae that have been recurrent...... 13. 02/22/20 - cellulitis of the RLE. Seborrheic dermatitis of the face. 02/29/20. 1. Acute biventricular CHF. 2. I suspect he has pulmonary HTN - possibly due to pulmonary HTN. 3. He grew Kocuria Rhizophila from the open wound on the R leg last week.........the wound is now closed and there is no evidence of infection. there were no WBC's on the gram stain. No antibiotics at this time......for a mild infection would use Minocycline or Augmentin and for severe would use Linezolide or Vanco. Plan: Continue the copper compressions socks. Clotrimazole onitment to Left foot BID - tops, bottoms and between the toe. Elevate both legs with sitting. discussed the ECHO - pulmonary HTN and diastolic dysfunction. Reinforced the need to moisturize at least once a day to prevent cracking in the skin and recurrent cellulitis/ulcers. RTC in 1 week to recheck the tinea pedis Office Visits / Consults: [id number] OV L2 Est
[2020-04-25 13:22] VITALS: BP 115/68; PULSE 100; TEMP 37.2; BMI 45.4
--- NOTE | 2020-04-25 16:01 | PN.PCM_ITS ---
(1) Venous stasis ulcer Status: Acute Qualifiers: Venous stasis ulcer site: other part of lower leg Varicose vein presence: with varicose veins Laterality: right Non-pressure ulcer stage: with fat layer exposed Qualified Code(s): I83.018 - Varicose veins of right lower extremity with ulcer other part of lower leg; L97.812 - Non-pressure chronic ulcer of other part of right lower leg with fat layer exposed Code(s): I83.009 - Varicose veins of unspecified lower extremity with ulcer of unspecified site; L97.909 - Non-pressure chronic ulcer of unspecified part of unspecified lower leg with unspecified severity Comment: healed (2) Venous insufficiency Status: Chronic Code(s): I87.2 - Venous insufficiency (chronic) (peripheral) Type of Wound Date of Service: 04/25/20 Chief Complaint: wound on the LLE distally History of Wound: He has had a raised area on the Left lateral and anterior pretibial area on the distal left leg since having his CABG 10 years ago. Recently it has been weeping and it is scaley. He recently had an exacerbation of COPD and has been on Zithromax and steroids. Has had increased swelling of the legs. Denies any hx of DVT or claudication. Had saphenous vein graft in the right lower extremity. His is unable to get compression stockings on. He has no lymphedema pumps. 02/22/20. He had an unna boot on the LLE for the past week. He is using a copper compression stocking on the R LE. He denies F/C/S. He has a new opening on the R LE that has clear fluid seeping from it. He had his venous studies done earlier today. Progress of Wound: Weight is stable at 292. He has started using the lymphedema pumps and they have been effective in controlling the edema. He is using them 20 minutes at a time. He denies pain. He has had no fevers and no sweats or chills. He denies any openings in the skin. He has been using the antifungal cream on the feet and also moisturizer and they are doing much better. Denies any itching of his feet. - Physical Exam Vital Signs Temp Pulse Resp BP 98.9 F 100 20 H 115/68 04/25/20 13:22 04/25/20 13:22 04/11/20 14:03 04/25/20 13:22 Wound Measurements and Assessment - Nurse 1 - General Ulcer Measurement Start: 04/11/20 13:46 Freq: Status: Active Protocol: Activity Type Activity Date Activity User E-Sign Co-Sign Detail Recorded Client Recorded Date Recorded By Document 04/25/20 13:22 KR [id number] 04/25/20 13:23 KR 04/25/20 13:22 Wound Center Nurse 1 [Edema Assessment] -Right Calf (cm) 49.4 -Right Ankle (cm) 28.9 -Left Calf (cm) 44.9 -Left Ankle (cm) 27.1 WC - Nurse 2 - General Ulcer CM Notes Start: 04/11/20 13:46 Freq: Status: Active Protocol: Activity Type Activity Date Activity User E-Sign Co-Sign Detail Recorded Client Recorded Date Recorded By Document 04/25/20 13:32 MW [id number] 04/25/20 13:33 MW 04/25/20 13:32 Pain Scale: 0-10 Numeric [Pain] -Is Patient Pain Free? Yes - Nurse 3 - General Ulcer D/C NN Start: 04/11/20 13:46 Freq: Status: Active Protocol: Activity Type Activity Date Activity User E-Sign Co-Sign Detail Recorded Client Recorded Date Recorded By Document 04/25/20 13:33 MW [id number] 04/25/20 13:34 MW 04/25/20 13:33 Wound Care Nurse 3 [Compression Applied] Right -Lotion applied to leg before No compression wrap -Stockings Yes Left -Lotion applied to leg before No compression wrap -Stockings Yes [Post Procedure Tolerated] -Treatment Response Procedure Tolerated Well Pain Scale: 0-10 Numeric [Pain] -Is Patient Pain Free? Yes Teaching: Wound Center [Wound Center Education] (Items with an * have Printed Materials Available- Please identify what is given to patient under the Teaching materials given to patient and caregiver Section. Discharge Instructions -Person Taught Patient,Family -Teaching Method Discussion -Response to teaching Verbalize understanding WC - Visit Discharge [Visit Discharge Information] -Discharge Condition Stable -Ambulatory Status Ambulatory -Transportation Private Auto -Accompanied by -Medication Reconcilliation completed No & provided to patient/care provider -Clinical Summary of Care Provided Yes He has no openings in the skin of either LE. The edema is better than I have ever seen it. There are no bullae or blisters present. There is no tinea pedis between the toes today. the fungus on the soles of the feet is doing much better and the skin is better moisturizer. Even the raised hyperkeratotic area on the distal LLE is flatter. Debridement Note Post-Debridement Measurements/Treatment WC - Nurse 2 - General Ulcer CM Notes Start: 04/11/20 13:46 Freq: Status: Active Protocol: Activity Type Activity Date Activity User E-Sign Co-Sign Detail Recorded Client Recorded Date Recorded By Document 04/11/20 14:49 MW [id number] 04/11/20 14:50 MW Document 04/25/20 13:32 MW [id number] 04/25/20 13:33 MW 04/11/20 04/25/20 14:49 13:32 Wound Center Nurse 2 #2- R LOWER ASTORGA -Time 14:49 -Correct Patient Yes -Correct Side, Site, Position Yes -Correct Procedure Yes -Procedure Performed No -Post Debridement (cm) - Length 0 -Post Debridement (cm) - Width 0 -Post Debridement (cm) - Depth 0 -Total Square (Post) (cm) 0 -Wound/Ulcer Outcome Healed- Epithelialized Pain Scale: 0-10 Numeric Is Patient Pain Free? Yes - Nurse 3 - General Ulcer D/C NN Start: 04/11/20 13:46 Freq: Status: Active Protocol: Activity Type Activity Date Activity User E-Sign Co-Sign Detail Recorded Client Recorded Date Recorded By Document 04/11/20 14:52 MW [id number] 04/11/20 14:53 MW Document 04/25/20 13:33 MW [id number] 04/25/20 13:34 MW 04/11/20 04/25/20 14:52 13:33 Right -Lotion applied to leg before No compression wrap -Stockings Yes Left -Lotion applied to leg before No compression wrap -Stockings Yes Wound Care Nurse 3 Treatment Response Procedure Procedure Tolerated Well Tolerated Well Pain Scale: 0-10 Numeric Is Patient Pain Free? Yes Teaching: Wound Center Discharge Instructions -Person Taught Patient,Family -Teaching Method Discussion -Response to teaching Verbalize understanding Control Swelling with Leg Elevation -Person Taught Patient,Family -Teaching Method Discussion -Response to teaching Verbalize understanding Compression Wraps & Stockings -Person Taught Patient,Family -Teaching Method Discussion -Response to teaching Verbalize understanding WC - Visit Discharge Discharge Condition Stable Stable Ambulatory Status Ambulatory Ambulatory Transportation Private Auto Private Auto Accompanied by Medication Reconcilliation completed & No No provided to patient/care provider Clinical Summary of Care Provided Yes Yes No debridement was completed today Assessment/Plan Active Problems Venous insufficiency (Chronic) Venous stasis ulcer (Acute) healed Assessment: Impressions. 1. stasis dermatitis of both LE's - R>L....better since he has started moisturizing again. 2. Chronic venous insufficiency of both LE's with superimposed lymphedema secondary to this. 3. morbid obesity. 4. DM II. 5. CAD with hx of CABG X 5 in 2010 - he hasa a keloid on the RLE from the site of the GSV graft. 6. HTN. 7. Parkinson's disease. 8. Tobacco dependence in remission. 9. Hyperlipidemia. 10. BPH. 11. paronychitis of the Left great toe - resolved with antibiotics. 12. contact dermatitis - denisha pect due to Surepres wrap which contains Latex. Possible Latex allergy? I suspect he may have Bullous Pemphigoid as the etiolgy of the bullae that have been recurrent...... 13. 02/22/20 - cellulitis of the RLE. Seborrheic dermatitis of the face. 02/29/20. 1. Acute biventricular CHF. 2. I suspect he has pulmonary HTN - possibly due to pulmonary HTN. 3. He grew Kocuria Rhizophila from the open wound on the R leg last week.........the wound is now closed and there is no evidence of infection. there were no WBC's on the gram stain. No antibiotics at this time......for a mild infection would use Minocycline or Augmentin and for severe would use Linezolide or Vanco. 04/25/20 All wound are healed and the edema is well controlled Plan: Continue the copper compressions socks. Clotrimazole onitment to Left foot BID - tops, bottoms and between the toes for another week. Elevate both legs with sitting. discussed the ECHO - pulmonary HTN and diastolic dysfun ction. Reinforced the need to moisturize at least once a day to prevent cracking in the skin and recurrent cellulitis/ulcers. RTC PRN if any openings in the skin. Continue the lymphedema pumps - can leave them on for up to an hour. Office Visits / Consults: [id number] OV L2 Est
== END 2020-05-10 23:59 ==
LOC: WC 13:15
PROVIDERS: PCP General Practice; Referring Provider General Practice; Visit Provider Internal Medicine
DX: I83.018 Varicose veins of right lower extremity with ulcer other part of lower leg (principal); L97.812 Non-pressure chronic ulcer of other part of right lower leg with fat layer exposed; I87.2 Venous insufficiency (chronic) (peripheral); I89.0 Lymphedema, not elsewhere classified; B35.3 Tinea pedis; L25.9 Unspecified contact dermatitis, unspecified cause; I11.0 Hypertensive heart disease with heart failure; I50.82 Biventricular heart failure; E11.9 Type 2 diabetes mellitus without complications; I25.10 Atherosclerotic heart disease of native coronary artery without angina pectoris; G20 Parkinson's disease; J44.9 Chronic obstructive pulmonary disease, unspecified; E78.5 Hyperlipidemia, unspecified; N40.0 Benign prostatic hyperplasia without lower urinary tract symptoms; E66.01 Morbid (severe) obesity due to excess calories; Z79.4 Long term (current) use of insulin; Z79.899 Other long term (current) drug therapy; Z95.1 Presence of aortocoronary bypass graft
CPT/HCPCS: 99212; 99213; G0463